=== PATIENT | male | born 1965 | race Caucasian/White ===

== ENCOUNTER 2016-10-02 12:40 | Inpatient (IN) | payer OTHER ==
--- NOTE | ~2016-10-02 | EKG ---
PATIENT: ABDIRIZAK SUMMERS UNIT #: [id number] Ventricular Rate: 112 BPM Atrial Rate: 104 BPM QRS Duration: 150 ms Q-T Interval: 398 ms QTC Calculation(Bezet): 543 ms Calculated R Cary: 86 degrees Calculated T Cary: 0 degrees Diagnosis Line: Atrial fibrillation with rapid ventricular Diagnosis Line: response Diagnosis Line: Right bundle branch block Diagnosis Line: Abnormal ECG Diagnosis Line: When compared with ECG of 31-JUL-2016 22:39, Diagnosis Line: No significant change was found Diagnosis Line: Confirmed by BETHANY JONES MD ([id number]) on 10/04/2016 Diagnosis Line: 7:29:31 PM INTERPRETING MD: ROBERT BEATTY
--- NOTE | ~2016-10-02 | CR72 ---
[facility] A Service of [facility] RADIOLOGY TEXT RESULTS PATIENT: ABDIRIZAK SUMMERS LOCATION: [address] : [birth year] UNIT #: [id number] AGE: [address]: Willa Cox MD SEX: M ORDER DR: [id number] [place], [place] [address] [id number] I MR#: [id number] Acc #: [id number] NAME: ABDIRIZAK SUMMERS : 1965 SEX: M STUDY DATE/TIME: 10/06/2016 7:15 UNIT: [facility] ROOM: [facility] STUDY DESCRIPTION: CR Chest Single View Portable Attending Physician: Willa Cox M.D. Ordering Physician: Rita German M.D. MEDICAL IMAGING REPORT This report is preliminary unless electronic signature is present EXAM AP portable chest 10/06/2016. HISTORY Endotracheal tube. TECHNIQUE AP portable chest x-ray. FINDINGS Endotracheal tube tip is high in the thoracic trachea near the thoracic inlet about 6 cm above the dakotah. Left IJ central line in good position. NG tube below the diaphragm. No significant change since yesterday. Infiltrate or atelectasis in the right lung base. Lungs otherwise clear. Stable cardiomegaly. IMPRESSION Endotracheal tube tip high in the thoracic trachea as detailed above. Dictated by... Robbie Nassar M.D. THIS IS AN ELECTRONICALLY VERIFIED REPORT Robbie Nassar M.D. at 10/06/2016 10:35 AM [place] TD: 10/06/2016 08:02 JOB #: [id number] MEDICAL IMAGING REPORT COPY
--- NOTE | ~2016-10-02 | CO ---
Unit #: [id number] #: [id number] Patient: ABDIRIZAK SUMMERS [id number] [address] [address] [id number] I MR#: [id number] NAME: ABDIRIZAK SUMMERS ROOM: [facility] Age: 51 Sex: M Admission Date: 10/02/2016 : 1965 Attending Physician: Willa Cox M.D. Primary Care Physician: No Primary Care Physician CONSULTATION REPORT CHIEF COMPLAINT C. diff colitis, sepsis, multiorgan failure, atrial fibrillation, on heparin, thrombocytopenia. HISTORY OF PRESENT ILLNESS This is a 51-year-old male who came to hospital with C. diff colitis. Patient had exploratory laparotomy. No hemicolectomy. Patient had lysis of adhesions. At present patient is septic. His blood pressure is low. He is on multiple pressors. He is taking multiple antibiotics. He is in renal failure. He has congestive heart failure. From a hematology point of view he has atrial fibrillation. He is taking heparin. His platelet count has dropped about 50%. CBC on October 08, 2016 showed WBC 18.6, hemoglobin 14.9, MCV 83 and platelets 221. Today CBC showed WBC 9.3, hemoglobin (1) , MCV 81 and platelets 114. There are no petechiae, no ecchymosis. He is not bleeding. He is tolerating heparin. I reviewed the peripheral smear and there are no schistocytes. Platelet morphology is normal. There is mild left shift. His bilirubin has increased to 4.2, LDH is pending. At present as mentioned above he is on multiple pressors. He is sedated and intubated. REVIEW OF SYSTEMS Unable to obtain. PAST MEDICAL HISTORY 1. Morbid obesity. 2. Diabetes. 3. Hypertension. 4. Obstructive sleep apnea. 5. Back pain. 6. Renal failure. 7. Congestive heart failure. 8. Atrial fibrillation. PAST SURGICAL HISTORY Tonsillectomy. Unit #: [id number] #: [id number] Patient: ABDIRIZAK SUMMERS SOCIAL HISTORY He is on disability. He quit smoking may years ago. FAMILY HISTORY Details not available. ALLERGIES Codeine. PHYSICAL EXAMINATION VITAL SIGNS: Afebrile, pulse 119, respiratory 18 while intubated, O2 sat is 96%, blood pressure 117/68. GENERAL: Patient is comfortable. ECOG is 0. The patient is pleasant. HEENT: Dry mucosa. Pupils equally reactive to light. Extraocular muscles intact. Sclerae anicteric. No obvious bleeding from nasal mucosa or oral mucosa. Scalp normal. Hearing normal. NECK: No JVD. No lymphadenopathy. LYMPHATIC/HEMATOLOGIC: There is no palpable adenopathy in the neck, axilla or inguinal area. CARDIOVASCULAR: S1, S2. RESPIRATORY: Bilateral wheezing. ABDOMEN/GASTROINTESTINAL: Abdomen is soft. EXTREMITIES: Edema +2. NEUROLOGICAL: Patient is alert, awake and oriented x3. Cranial nerves II-XII are intact. Sensory grossly intact. Motor is 4/5 in all four extremities. Gait is normal. Station is normal. Language is normal. Memory is normal. DTRs +2 in all four extremities. MUSCULOSKELETAL: No joint swelling. No bony tenderness. No muscle tenderness. SKIN: No petechiae, no rash, no ecchymosis. PSYCHIATRIC: No anxiety. No delusions or hallucinations. There is no agitation. Eye contact is normal. Affect is appropriate. There is no flight of ideas. DIAGNOSTIC STUDIES LABORATORY: Labs as mentioned above. IMAGING: CT of the abdomen and pelvis on 10/02/2016 showed thickening of the left colon. There is a possible segmental infection or inflammatory proctocolitis. CT of the chest on 08/01/2016 no mass. There is a 9 mm ground-glass nodule in the superior left lower lobe. ASSESSMENT AND PLAN This is a 51-year-old male who has the following active issues: 1. Clostridium difficile colitis. He is septic. He is on multiple pressors. 2. Cardiovascular: He has atrial fibrillation. He is on heparin. 3. Thrombocytopenia: His platelet count has dropped by 50%. The etiology of thrombocytopenia includes possible HIT or sepsis. A HIT panel has been ordered. As a precaution I will discontinue heparin. I will start argatroban. Will maintain PTT from 40 to 60. 4. Anemia: I will check iron studies. 5. Cardiovascular: His ejection fraction is less than 20%. 6. Renal: He is on dialysis. He is in acute renal failure. PROGNOSIS Unit #: [id number] #: [id number] Patient: ABDIRIZAK SUMMERS His prognosis is poor. Dictated by... Bunny Grider TD: 10/10/2016 15:40 JOB #: [id number] CONSULTATION REPORT X Josie Michaud MD X CONSULTATION REPORT
--- NOTE | ~2016-10-02 | OR ---
Unit #: [id number] #: [id number] Patient: ABDIRIZAK SUMMERS [id number] [address] [id number] I MR#: [id number] NAME: ABDIRIZAK SUMMERS ROOM: [facility] Date of Procedure: 10/09/2016 Admission Date: 10/02/2016 Surgeon: Herve Johnson M.D. : 1965 Attending Physician: Willa Cox M.D. Primary Care Physician: Mirlande Primary Care Physician PROCEDURE OPERATIVE NOTE PREOPERATIVE DIAGNOSIS Pneumonia. POSTOPERATIVE DIAGNOSIS Pneumonia. PROCEDURES PERFORMED 1. Diagnostic bronchoscopy. 2. Bronchoalveolar lavage. INDICATION FOR PROCEDURE Pneumonia. PROCEDURE After taking consent from the patient's family, after explaining the risks and benefits, the patient was placed in the appropriate position. Bronchoscope was introduced through the endotracheal tube, which was sitting well above the dakotah. We examined the right upper, right middle, right lower lobe, left upper lobe, lingual and left lower lobe. No endobronchial lesion was found. There were thick mucoid secretions in both lungs which were therapeutically suctioned. Then we did a bronchoalveolar lavage in the right lower lobe area with 60 ml of saline in and 20 ml retrieved. The patient tolerated the procedure very well with no complications. Dictated by... Bunny Ramirez TD: 10/09/2016 12:25 JOB #: [id number] Unit #: [id number] #: [id number] Patient: ABDIRIZAK SUMMERS PROCEDURE OPERATIVE NOTE X Herve Johnson MD PROCEDURE OPERATIVE NOTE
--- NOTE | ~2016-10-02 | CR72 ---
[facility] A Service of [facility] RADIOLOGY TEXT RESULTS PATIENT: ABDIRIZAK SUMMERS LOCATION: [place] [address] : [birth year] UNIT #: [id number] AGE: [address]: Willa Cox MD SEX: M ORDER DR: [id number] [place], [place] [address] [id number] I MR#: [id number] Acc #: [id number] NAME: ABDIRIZAK SUMMERS : 1965 SEX: M STUDY DATE/TIME: 10/10/2016 4:42 UNIT: [facility] ROOM: [facility] STUDY DESCRIPTION: CR Chest Single View Portable Attending Physician: Willa Cox M.D. Ordering Physician: Herve Johnson M.D. Primary Care Physician: No Primary Care Physician MEDICAL IMAGING REPORT This report is preliminary unless electronic signature is present EXAM AP portable chest 10/10/2016 at 04:42. HISTORY Respiratory failure. Atrial fibrillation. Hypotension. Intubation. Symptoms began 10/02/2016. COMPARISON AP portable chest 10/09/2016. FINDINGS The patient is rotated toward the right. Allowing for this, the degree of cardiac enlargement is probably stable. Right greater than left basilar airspace disease and probable small right pleural effusion are unchanged. Right IJ central line, ET tube, left subclavian approach central line, NG tube appear stable. No visible pneumothorax. IMPRESSION 1. Right greater left basilar airspace disease with probable small right pleural effusion, cardiomegaly, without significant change. 2. Supporting lines and tubes appear stable. No visible pneumothorax. Dictated by... Melinda Puente M.D. THIS IS AN ELECTRONICALLY VERIFIED REPORT Melinda Puente M.D. at 10/10/2016 9:58 PM LLH/gz TD: 10/10/2016 13:20 JOB #: [id number] MEDICAL IMAGING REPORT [facility] A Service of [facility] RADIOLOGY TEXT RESULTS PATIENT: ABDIRIZAK SUMMERS LOCATION: [facility] : [birth year] UNIT #: [id number] AGE: [address]: Willa Cox MD SEX: M ORDER DR: COPY
--- NOTE | ~2016-10-02 | CO ---
Unit #: [id number] #: [id number] Patient: ABDIRIZAK SUMMERS [id number] [address] [address] [id number] I MR#: [id number] NAME: ABDIRIZAK SUMMERS ROOM: [id number] Age: 51 Sex: M Admission Date: 10/02/2016 : 1965 Attending Physician: Willa Cox M.D. Primary Care Physician: Mirlande Primary Care Physician Consultation Date: 10/02/2016 CONSULTATION REPORT REASON FOR CONSULT ICU management. HISTORY OF PRESENT ILLNESS This is a 51-year-old male who is well known to our service from previous admissions with past medical history significant for obstructive sleep apnea - on CPAP, A fib, hypertension, hyperlipidemia, diabetes. He presented to the emergency room with diarrhea for 3 weeks and shaking. The patient, today, started having some abdominal cramps. By the time he arrived in the ER, his blood pressure was in the mid 60s, and he was found to be hypothermic. A STAT CT abdomen showed colitis. The patient admitted to having some shortness of breath, but he denied any cough, fever or chills. REVIEW OF SYSTEMS Twelve-point review of systems was obtained and was negative except for diarrhea, abdominal cramps and some shortness of breath. PAST MEDICAL HISTORY 1. A fib. 2. Hypertension. 3. Hyperlipidemia. 4. Diabetes. 5. Obstructive sleep apnea. 6. Chronic kidney disease. 7. Morbid obesity. 8. Chronic back pain. PAST SURGICAL HISTORY 1. Tonsillectomy. 2. Finger surgery. 3. Eye surgery. 4. Umbilical hernia repair. SOCIAL HISTORY The patient is on disability. He uses a cane and walker. He quit smoking many years ago. He drinks beer occasionally but not a daily drinker. No history of drug abuse. FAMILY HISTORY Cancer of unknown type and brain aneurysm. ALLERGIES Unit #: [id number] #: [id number] Patient: ABDIRIZAK SUMMERS Codeine. HOME MEDICATIONS 1. Bystolic. 2. Eliquis. 3. Neurontin. 4. Protonix. 5. Levemir. 6. Bumex. 7. Iron. 8. Tribenzor. PHYSICAL EXAMINATION GENERAL: The patient is ill appearing. VITAL SIGNS: Blood pressure 72/53 with a MAP of 34. HEENT: Atraumatic, normocephalic. PERRLA, EOMI. NECK: Supple. No JVD. No lymphadenopathy. CHEST: Decreased breath sounds bilaterally with no crackles or rhonchi. HEART: S1, S2. No murmur, gallops or rubs. ABDOMEN: Soft, tender to deep palpation. Bowel sounds positive. EXTREMITIES: Bilateral lower extremity venous stasis changes with wound on the right lower extremity. SKIN: No rashes. SENIOR BUDGET ANALYST: Awake, alert, oriented x3. No focal motor/sensory deficits. DIAGNOSTIC STUDIES LABORATORY: Creatinine 4.5, sodium 128, potassium 3.2. IMAGING: CT abdomen consistent with colitis. ASSESSMENT 1. Septic shock. 2. Acute on chronic kidney disease. 3. Hyponatremia. 4. Hypokalemia. 5. Hypomagnesemia. 6. Obstructive sleep apnea. 7. Morbid obesity. 8. Diabetes. PLAN 1. The patient is critical. Emergent central line will be placed for pressors and hydration. 2. Will follow lactic acid and urine output very closely. 3. IV hydration and pressors as needed. 4. Rule out C. diff. 5. Antibiotics empirically. 6. Blood sugar control. 7. Continue Eliquis. NOTE: Critical care time spent on this patient was 42 minutes. Dictated by... Alejo German M.D. EA/ronnie Unit #: [id number] #: [id number] Patient: ABDIRIZAK SUMMERS TD: 10/03/2016 09:22 JOB #: [id number] CONSULTATION REPORT X ALEJO CONTEH MD CONSULTATION REPORT
--- NOTE | ~2016-10-02 | FU ---
[facility] Nutrition Therapy DATE: 10/15/16 Patient: ABDIRIZAK SUMMERS Physician: TERESA Address: [address] [place] [address] Room/Bed: [address], Zip: [place] [address] Admit Date: 10/02/16 Date of : [birth year] Height: 5 9 Weight: 379 172 NUTRITION MONITORING/FOLLOW-UP: Reason: PT SEEN FOR FOLLOW-UP/ENTERAL NUTRITION SUPPORT DX: DIARRHEA/ABD CRAMPS Anthropometrics: 5'8", WT: 390# (177 KG), BMI: 59.3 -ADMIT WEIGHT: 375# (170 KG)- WEIGHTS HAVE INCREASED 2' FLUID RETENTION? Labs: GLU: 185, BUN: 46, CREAT: 1.7, CA+: 7.9, ALB: 2.8, AST: 72, NA+:134, GFR: 45.2 Meds: NACL, REGLAN, NOVOLOG, FENTANYL, PEPCID, ZOFRAN, KCL I&O's: 54000/9621, 1 BM NOTED Skin: ISSUES NOTED EDEMA: FAYE HANDS/ARMS 1+ EDEMA; BILATERAL FEET 3+ EDEMA; BILATERAL LEGS 1+ EDEMA Estimated Nutrition Needs: [id number] KCAL 105-140 G PRO Assessment: CHART REVIEWED AND EVENTS NOTED. PT SEEN FOR ENTERAL NUTRITION SUPPORT FOLLOW-UP. PT CONTINUES TO BE INTUBATED AND SEDATED AT TIME OF VISIT RECEIVING ALTERNATIVE NUTRITION SUPPORT OF VITAL HIGH PROTEIN @ 65 ML/HR. PER RN AND CHART, PT TOLERATING EN, NO ISSUES NOTED. NO FAMILY IN ROOM AT THIS TIME. RD TO CONTINUE TO FOLLOW. OF NOTE, PT RECEIVING CRRT. Dx: INADEQUATE ORAL INTAKE R/T CURRENT CLINICAL CONDITION AEB PT INTUBATED AND SEDATED, RECEIVING ALTERNATIVE NUTRITION SUPPORT. IN PROGRESS Intervention: 1. ENTERAL NUTRITION SUPPORT OF VITAL HIGH PROTEIN Monitoring, Evaluation and Goals: GOALS MET 1. ENTERAL NUTRITION; PROVIDE ~80-100% ESTIMATED NUTRIENT NEEDS 2. LABS; WNL 3. GI; PROMOTE REGULAR GI FUNCTION MONITOR: -WEIGHTS -TF RATE/RESIDUALS -LABS Recommendations: [facility] Nutrition Therapy DATE: 10/15/16 Patient: ABDIRIZAK SUMMERS Physician: TERESA Address: [address] [place] [address] Room/Bed: [address] State, Zip: [place] [address] Admit Date: 10/02/16 Date of : [birth year] Height: 5 9 Weight: 379 172 1. ADD SUGAR-FREE PROSTAT ONCE DAILY FOR ADDITIONAL PROTEIN AND KCAL 2. CONTINUE CURRENT ENTERAL NUTRITION SUPPORT OF VITAL HIGH PROTEIN @ 65 ML/HR + SUGAR-FREE PROSTAT DAILY -PROVIDES 1660 KCAL, 152 G PRO, 1310 ML FREE H20 CONTINUE FREE H20 FLUSHES PER MD RD WILL F/U PER PROTOCOL PT IS SEVERELY COMPROMISED Respectfully, ROSALVA GONG MS, RD, LD Food and Nutritional Services [facility] cc: client file
--- NOTE | ~2016-10-02 | CO ---
Unit #: [id number] #: [id number] Patient: ABDIRIZAK SUMMERS [id number] [address] [place], [place] [address] [id number] I MR#: [id number] NAME: ABDIRIZAK SUMMERS ROOM: [facility] Age: 51 Sex: M Admission Date: 10/02/2016 : 1965 Attending Physician: Willa Cox M.D. CONSULTATION REPORT JOB NOTE: CC: DR. RENTERIA. REASON FOR CONSULTATION Chest pain. HISTORY OF PRESENT ILLNESS This is a 51-year-old white male, who was discharged from this facility in August, where he was admitted for pneumonia, respiratory failure, and Clostridium difficile toxin. Since his discharge, the patient continued to have diarrhea. He went to his primary care physician's office and was given another round of antibiotics. He continued to have abdominal pain, therefore, he presented to the emergency room for evaluation. He was noted to have colitis on CAT scan of the abdomen. He was hypotensive, where his blood pressure was 68/36 mmHg requiring vasoactive support with Levophed. He was admitted to the intensive care unit. Today, the patient complained of substernal chest pain, which he describes as a sharp pain that is nonradiating to his neck, arm, or jaw. He has also had persistent abdominal discomfort. He was short of breath and felt "hot." He denies palpitations or dizziness. No syncope or near syncope. There was elevation of troponin that was 0.15. His admitting EKG of the patient have atrial fibrillation in a rapid ventricular rate of 112 beats per minute. Repeat EKG today shows a T-wave inversions with ST depression in the anterolateral leads. He has been seen by our group in 2013, where he was originally diagnosed with atrial fibrillation/flutter. He has been on anticoagulation with Eliquis. He has risk factors for ischemic heart disease includes hypertension, hyperlipidemia, and obesity. He has had no prior cardiac testing. In review of rhythm strips, the patient had several runs of nonsustained ventricular tachycardia up to 6 beats. PAST MEDICAL HISTORY 1. 2D echocardiogram on 04/10/2014 showed an ejection fraction equal to 50% to 55%. There is pseudonormalization. Trace mitral regurgitation and trace tricuspid regurgitation. Right ventricular enlargement. 2. Hypertension. 3. Hyperlipidemia. 4. Permanent atrial fibrillation/flutter, on Eliquis. 5. Chronic kidney disease. 6. Obstructive sleep apnea wears CPAP. 7. Obesity. 8. Clostridium difficile toxin. 9. Rheumatoid arthritis. 10. Lifelong nonsmoker. Unit #: [id number] #: [id number] Patient: ABDIRIZAK SUMMERS PAST SURGICAL HISTORY 1. Hernia repair x2. 2. Left finger surgery. 3. Right leg vein stripping. 4. Tonsillectomy. SOCIAL HISTORY The patient is single and disabled. He has never smoked. Drinks alcohol on occasion. FAMILY HISTORY Negative for coronary artery disease. ALLERGIES Codeine. HOME MEDICATIONS Magnesium oxide 400 mg b.i.d., Bumex 2 mg daily, Bystolic 20 mg daily, Tribenzor 40/5/12.5 mg daily, ferrous sulfate 325 mg t.i.d., Neurontin 300 mg q.h.s., Eliquis 5 mg b.i.d., Protonix 40 mg b.i.d., and Levemir 20 units subcu daily. REVIEW OF SYSTEMS A 10-point review of system is negative except details stated in HPI. PHYSICAL EXAMINATION VITAL SIGNS: Blood pressure 90/72, heart rate 98, temperature 97.3. BMI 55. GENERAL: This is an obese 51-year-old mildly anxious white male, who is in no acute distress. NEUROLOGIC: He is awake, alert, and oriented without focal weaknesses. NECK: Trachea is midline. No thyromegaly or lymphadenopathy. No jugular venous distention. HEART: S1, S2. Heart sounds are normal. No murmurs. No rubs or clicks. Irregularly irregular rhythm. LUNGS: Clear to auscultation without rales, rhonchi, or wheezing. ABDOMEN: Slightly firm with tenderness. 4+ bowel sounds. EXTREMITIES: With trace lower extremity edema. DIAGNOSTIC STUDIES LABORATORY RESULTS: Glucose 108, BUN 35, creatinine 2.2, sodium 127, potassium 3.7, magnesium 1.8. CK total is 8, troponin 0.15. BNP 482. White count 13.1, hemoglobin 13.3, hematocrit 41.5, and platelet count 171. IMAGING STUDIES: Chest x-ray shows no active disease. CARDIOVASCULAR STUDIES: Presenting EKG; atrial fibrillation with rapid ventricular response with a rate of 112 beats per minute. Repeat EKG; atrial fib with controlled ventricular rate of 82 beats per minute, pulmonary disease pattern, low-voltage QRS. There is T-wave inversion from V3 to V6, but ST depression. IMPRESSION 1. Chest pain, questionable septic shock. 2. Clostridium difficile colitis. 3. Acute kidney injury on chronic kidney disease. 4. New-onset angina pectoris. Unit #: [id number] #: [id number] Patient: ABDIRIZAK SUMMERS 5. Probable anterior wall injury pattern. 6. Morbid obesity with BMI of 55. 7. Nonsustained ventricular tachycardia. 8. Preserved left ventricular systolic function with an ejection fraction of 50% to 55%. 9. Permanent atrial fibrillation and controlled ventricular rate. 10. Chronic right bundle-branch block. PLAN 1. Cardiology was consulted for chest pain. The patient's chest pain is most likely ischemic in origin. We will start the patient on anticoagulation with Lovenox and aspirin. Withhold Eliquis for now. 2. We will ask pharmacy to dose anticoagulation. 3. Start on nitrates. 4. For ventricular arrhythmias, we will start the patient on IV amiodarone. 5. Repeat chest x-ray in a.m. 6. Repeat cardiac enzymes, troponin, and EKG to rule out acute myocardial infarction. 7. Fasting lipid profile will be obtained. 8. We will follow the patient with you. Thank you for allowing us to assist in this patient's care. Dictated by... Yan Mccain A.P.R.N. for Bunny Tran/cristian TD: 10/04/2016 21:36 JOB #: [id number] CONSULTATION REPORT X Yan Mccain APRN X CONSULTATION REPORT
--- NOTE | ~2016-10-02 | CR72 ---
[facility] A Service of [facility] & [facility] RADIOLOGY TEXT RESULTS PATIENT: ABDIRIZAK SUMMERS LOCATION: [address] : [birth year] UNIT #: [id number] AGE: [address]: Willa Cox MD SEX: M ORDER DR: [id number] [facility] [address] [facility]. [place], [place] [address] [id number] I MR#: [id number] Acc #: [id number] NAME: ABDIRIZAK SUMMERS : 1965 SEX: M STUDY DATE/TIME: 10/08/2016 UNIT: [facility] ROOM: [facility] STUDY DESCRIPTION: CR Chest Single View Portable Attending Physician: Willa Cox M.D. Ordering Physician: Herve Johnson M.D. Primary Care Physician: No Primary Care Physician MEDICAL IMAGING REPORT This report is preliminary unless electronic signature is present EXAM Portable chest, 10/08/2016 at 04:46. HISTORY Hypotension, shortness of air, intubation, atrial fibrillation. FINDINGS AP portable chest compared with 10/07/2016. Tubes and lines are unchanged and well-positioned. The cardiac and mediastinal contours are unchanged. Small effusions are stable. There are persistent bibasilar infiltrates, also not appreciably changed. No pneumothorax. Dictated by... Shaun Lea Jr., M.D. THIS IS AN ELECTRONICALLY VERIFIED REPORT Shaun Lea Jr., M.D. at 10/08/2016 12:40 PM JORGE/saray TD: 10/08/2016 10:21 JOB #: [id number] MEDICAL IMAGING REPORT COPY
--- NOTE | ~2016-10-02 | A ---
[facility] Nutrition Therapy DATE: 10/04/16 Patient: ABDIRIZAK LAURENHASEEBJoseph Physician: TERESA Address: [address] [place] [address] Room/Bed: [address], Zip: [place] [address] Admit Date: 10/02/16 Date of : 63 Height: 5 9 Weight: 375 170.1 NUTRITIONAL ASSESSMENT: REASON: ONE NUTRITION RISK PT RE: PRESSURE ULCER/NON-HEALING WOUND + HIGH BMI DOCUMENTATION PT IS 51 Y.O. MALE ADMITTED FOR DIARRHEA, ABD CRAMPING , ARF PMH: CKD, T2DM, LEE, HTN, HLD, AFIB, RESP FAILURE, HYPOTHYROIDISM, HX OF HERNIA REPAIR Anthropometrics: 5'8", WT: 375# (170 KG), BMI: 57.0, 244%IBW Labs: BUN: 35, CREAT: 2.2, CA+:7.4, ALB: 1.5, NA+:127, LIPASE: <10, GFR: 33.6 Meds: PEPCID, D5%, NOVOLOG, ZOFRAN, KCL, MAG SULFATE, NACL I/O & Bowel function: 5738/1164, 4 BMs Skin Integrity: RLE WOUND NOTED EDEMA: BLE GENERALIZED EDEMA Estimated Nutrition Needs: N/A Assessment: CHART REVIEWED AND EVENTS NOTED. PT SEEN FOR NON-HEALING WOUND. PT REPORTED DECREASED PO INTAKE AND APPETITE 2' CHRONIC DIARRHEA AND ABD CRAMPING. PT ON BEDPAN-NOT APPROPRIATE FOR LONG DIET INTERVIEW. THIS RD ENCOURAGED ADEQUATE KCAL AND PROTEIN INTAKE TO PROMOTE WOUND HEALING, PT AGREED TO GLUCERNA SHAKES BID. NO FAMILY IN ROOM AT THIS TIME. RD TO FOLLOW. SEE RECOMMENDATIONS BELOW. Dx: OBESITY R/T LIFESTYLE AEB BMI OF 57.0. -DECREASED NUTRIENT INTAKE R/T CURRENT CONDITION, CHRONIC DIARRHEA, ABD CRAMPING AEB PT REPORT ABOVE. Intervention: 1. FULL LIQUID DIET 2. GLUCERNA SHAKES BID Monitoring, Evaluation and Goals: 1. PO INTAKE; PROVIDE AND CONSUME ADEQUATE NUTRITION W/NO C/O N/V/D (PO>50%) 2. WEIGHTS; PROMOTE GRADUAL WEIGHT LOSS TOWARDS HEALTHY BMI (19.0-25.0) OR +/-10%IBW 3. LABS; WNL 4. SKIN; PROMOTE WOUND HEALING MONITOR: -PO INTAKE/APPETITE [facility] Nutrition Therapy DATE: 10/04/16 Patient: ABDIRIZAK SUMMERS Physician: TERESA Address: [address] [facility] Room/Bed: [address], Zip: [place] [address] Admit Date: 10/02/16 Date of : 63 Height: 5 9 Weight: 375 170.1 -SUPPLEMENT INTAKE -DIET ADVANCEMENT -WEIGHTS -LABS Recommendations: 1. RECOMMEND TO OBTAIN UPDATED A1c TO FURTHER ASSESS DM MANAGEMENT 2. ORDER ELLI GLUCERNA SHAKES BID W/MEALS 3. ONCE MEDICALLY FEASIBLE, ADVANCE DIET TOLERATED TO CC+HH +2200 KCAL DIET RESTRICTION 4. CONSIDER ADDING MVI W/MINERAL DAILY TO PT'S CURRENT MEDICATION REGIMEN TO PROMOTE WOUND HEALING 5. ENCOURAGE ADEQUATE KCAL AND PROTEIN INTAKE 2' PT REPORT ABOVE RD WILL F/U PER PROTOCOL PT IS MODERATELY COMPROMISED Respectfully, ROSALVA GONG MS, RD, LD [facility] cc: client file
--- NOTE | ~2016-10-02 | CT57 ---
[facility] A Service of [facility] RADIOLOGY TEXT RESULTS PATIENT: ABDIRIZAK SUMMERS LOCATION: [address] : [birth year] UNIT #: [id number] AGE: [address]: Willa Cox MD SEX: M ORDER DR: [id number] [place], [place] [address] [id number] I MR#: [id number] Acc #: [id number] NAME: ABDIRIZAK SUMMERS : 1965 SEX: M STUDY DATE/TIME: 10/17/2016 10:40 UNIT: CIC2 ROOM: [facility] STUDY DESCRIPTION: CT Chest Wo Cont Attending Physician: Willa Cox M.D. Ordering Physician: Osei Arias M.D. Primary Care Physician: No Primary Care Physician MEDICAL IMAGING REPORT This report is preliminary unless electronic signature is present EXAM Chest CT without contrast DATE OF EXAMINATION 10/17/2016 PROCEDURE Axial unenhanced chest CT with multiplanar reformats. This CT exam was performed with one or more of the following radiation dose reduction techniques: automatic exposure control, adjustment of mA and/or kV according to patient size, and iterative reconstruction. COMPARISON STUDIES Prior CT dated 08/01/2016 HISTORY Sepsis with respiratory failure. FINDINGS There are moderate to large bilateral effusions and dependent compressive atelectasis but no evidence of infiltrate or other acute abnormality in the non compressed portions of the lungs. Images of the abdomen reveal ascites and distention of the stomach though there is an NG tube in place. There is no acute bony abnormality. IMPRESSION 1. Moderate to large bilateral effusions with posterior basilar dependent atelectasis and/or less likely infiltrate. 2. No pneumothorax and there is no infiltrate in any nondependent lung. [facility] A Service [facility] RADIOLOGY TEXT RESULTS PATIENT: ABDIRIZAK SUMMERS LOCATION: [address] : [birth year] UNIT #: [id number] AGE: [address]: Willa Cox MD SEX: M ORDER DR: Dictated by... Marcello Garcia M.D. THIS IS AN ELECTRONICALLY VERIFIED REPORT Marcello Garcia M.D. at 10/19/2016 1:49 PM ASUNCION/selam TD: 10/18/2016 09:42 JOB #: [id number] MEDICAL IMAGING REPORT Page 1 of 1 COPY
--- NOTE | ~2016-10-02 | CR72 ---
[facility] A Service of [facility] RADIOLOGY TEXT RESULTS PATIENT: ABDIRIZAK SUMMERS LOCATION: [address] : [birth year] UNIT #: [id number] AGE: [address]: Willa Cox MD SEX: M ORDER DR: [id number] [facility] [address] [facility]. [place], [place] [address] [id number] I MR#: [id number] Acc #: [id number] NAME: ABDIRIZAK SUMMERS : 1965 SEX: M STUDY DATE/TIME: 10/11/2016 4:53 UNIT: [facility] ROOM: [facility] STUDY DESCRIPTION: CR Chest Single View Portable Attending Physician: Willa Cox M.D. Ordering Physician: Herve Johnson M.D. Primary Care Physician: Primary Care Physician No MEDICAL IMAGING REPORT This report is preliminary unless electronic signature is present EXAM AP portable chest 10/11/2016 04:53 HISTORY Sepsis, respiratory failure, hypotension. C-difficile colitis. Symptoms began 10/02/2016. Additional history of atrial fibrillation, diabetes, obesity and kidney disease. Hypertension. COPD. COMPARISON AP portable chest 10/10/2016 FINDINGS Low-volume inspiration. Heart size is stable and deviated toward the right, unchanged from prior. Bibasilar airspace disease with small layering pleural effusions without significant change. Right IJ central line, ET tube and left IJ approach central line thought to be stable. No visible pneumothorax. IMPRESSION 1. Right greater than left airspace disease and layering bilateral pleural effusions, without significant change. 2. Supporting lines and tubes are stable. 3. Stable cardiac enlargement. Dictated by... Melinda Puente M.D. THIS IS AN ELECTRONICALLY VERIFIED REPORT Melinda Puente M.D. at 10/11/2016 10:02 PM DILSHAD/ish TD: 10/11/2016 08:38 JOB #: [id number] [facility] A Service of [facility] RADIOLOGY TEXT RESULTS PATIENT: ABDIRIZAK SUMMERS LOCATION: [id number] : [birth year] UNIT #: [id number] AGE: [address]: Willa Cox MD SEX: M ORDER DR: MEDICAL IMAGING REPORT COPY
--- NOTE | ~2016-10-02 | CR72 ---
[facility] A Service of [facility] RADIOLOGY TEXT RESULTS PATIENT: ABDIRIZAK SUMMERS LOCATION: [address] : [birth year] UNIT #: [id number] AGE: [address]: Willa Cox MD SEX: M ORDER DR: [id number] [facility]. [place], [place] [address] [id number] I MR#: [id number] Acc #: [id number] NAME: ABDIRIZAK SUMMERS : 1965 SEX: M STUDY DATE/TIME: 10/13/2016 3:22 UNIT: [facility] ROOM: [facility] STUDY DESCRIPTION: CR Chest Single View Portable Attending Physician: Willa Cox M.D. Ordering Physician: Herve Johnson M.D. Primary Care Physician: No Primary Care Physician MEDICAL IMAGING REPORT This report is preliminary unless electronic signature is present EXAM AP portable chest date 10/13/2016 at 03:22 HISTORY 51-year-old male, sepsis, respiratory failure and hypotension. Symptoms began 10/02/2016. History of atrial fibrillation, diabetes, COPD, hypertension. COMPARISON AP portable chest 10/12/2016 FINDINGS Small bilateral pleural effusions with bibasilar atelectasis or infiltrates persist. Stable cardiomegaly. Right IJ central line, ET tube, NG tube appear unchanged in position. Left subclavian central line unchanged. No visible pneumothorax. IMPRESSION 1. No significant change in the bibasilar atelectasis or infiltrate and small layering bilateral pleural effusions in comparison to 10/12/2016. The supporting lines and tubes appear stable. Dictated by... Melinda Puente M.D. THIS IS AN ELECTRONICALLY VERIFIED REPORT Melinda Puente M.D. at 10/13/2016 10:25 PM LLJocelyne/jd TD: 10/13/2016 12:23 JOB #: [id number] MEDICAL IMAGING REPORT [facility] A Service of [facility] RADIOLOGY TEXT RESULTS PATIENT: ABDIRIZAK SUMMERS LOCATION: [facility] [id number] : [birth year] UNIT #: [id number] AGE: [address]: Willa Cox MD SEX: M ORDER DR: COPY
--- NOTE | ~2016-10-02 | CR72 ---
[facility] A Service of [facility] RADIOLOGY TEXT RESULTS PATIENT: ABDIRIZAK SUMMERS LOCATION: [address] : 63 UNIT #: [id number] AGE: [address]: Willa Cox MD SEX: M ORDER DR: [id number] [facility] [address] [facility]. [place], [place] [address] [id number] I MR#: [id number] Acc #: [id number] NAME: ABDIRIZAK SUMMERS : 1965 SEX: M STUDY DATE/TIME: 10/15/2016 5:17 UNIT: [facility] ROOM: [facility] STUDY DESCRIPTION: CR Chest Single View Portable Attending Physician: Willa Cox M.D. Ordering Physician: Herve Johnson M.D. Primary Care Physician: No Primary Care Physician MEDICAL IMAGING REPORT This report is preliminary unless electronic signature is present EXAM Portable chest, 10/15/2016 at 05:17. HISTORY 51-year-old male with respiratory failure, sepsis. Symptoms began on 10/13/2016. Additional history of atrial fibrillation, diabetes. COMPARISON STUDIES AP portable chest, 10/14/2016. FINDINGS Persistent bibasilar consolidation with small layering bilateral pleural effusions, without significant change. Stable cardiomegaly. Right IJ central line, left IJ central line, tracheostomy appliance, and Dobbhoff tube appear unchanged. IMPRESSION 1. No significant change in the bibasilar consolidations and layering bilateral pleural effusions since 10/14/2016. 2. Supporting lines and tubes appear unchanged. No visible pneumothorax. Dictated by... Melinda Puente M.D. THIS IS AN ELECTRONICALLY VERIFIED REPORT Melinda Puente M.D. at 10/19/2016 8:37 AM DILSHAD/saray TD: 10/15/2016 10:59 JOB #: [id number] [facility] A Service of [facility] RADIOLOGY TEXT RESULTS PATIENT: ABDIRIZAK SUMMERS LOCATION: [address] : [birth year] UNIT #: [id number] AGE: [address]: Willa Cox MD SEX: M ORDER DR: MEDICAL IMAGING REPORT Page 1 of 1 COPY
--- NOTE | ~2016-10-02 | EKG ---
PATIENT: ABDIRIZAK SUMMERS UNIT #: [id number] Ventricular Rate: 107 BPM Atrial Rate: 77 BPM QRS Duration: 138 ms Q-T Interval: 354 ms QTC Calculation(Bezet): 472 ms Calculated R Craig: -153 degrees Calculated T Craig: 13 degrees Diagnosis Line: Atrial fibrillation with rapid ventricular Diagnosis Line: response Diagnosis Line: Right bundle branch block Diagnosis Line: Abnormal ECG Diagnosis Line: No previous ECGs available Diagnosis Line: Confirmed by BETHANY JONES MD ([id number]) on 10/06/2016 Diagnosis Line: 7:15:49 AM INTERPRETING MD: ROBERT BEATTY
--- NOTE | ~2016-10-02 | EKG ---
PATIENT: ABDIRIZAK SUMMERS UNIT #: [id number] Ventricular Rate: 82 BPM Atrial Rate: 82 BPM P-R Interval: 158 ms QRS Duration: 28 ms Q-T Interval: 282 ms QTC Calculation(Bezet): 329 ms P Genoa: 18 degrees Calculated R Genoa: 0 degrees Calculated T Genoa: -6 degrees Diagnosis Line: Atrial fibrillation Diagnosis Line: Indeterminate axis Diagnosis Line: Pulmonary disease pattern Diagnosis Line: ST depression, consider subendocardial injury Diagnosis Line: anteerolateral wall Diagnosis Line: Nonspecific ST abnormality Inferior leads Diagnosis Line: Abnormal ECG Diagnosis Line: When compared with ECG of 02-OCT-2016 13:08, Diagnosis Line: (unconfirmed) Diagnosis Line: ST depression, consider subendocardial injury is Diagnosis Line: new Diagnosis Line: Confirmed by BETHANY JONES MD ([id number]) on 10/04/2016 Diagnosis Line: 7:35:20 PM INTERPRETING MD: ROBERT BEATTY
--- NOTE | ~2016-10-02 | EKG ---
PATIENT: ABDIRIZAK SUMMERS UNIT #: [id number] Ventricular Rate: 119 BPM Atrial Rate: 107 BPM QRS Duration: 140 ms Q-T Interval: 402 ms QTC Calculation(Bezet): 565 ms Calculated R Adkins: -159 degrees Calculated T Adkins: 14 degrees Diagnosis Line: Atrial fibrillation with rapid ventricular Diagnosis Line: response Diagnosis Line: Right bundle branch block Diagnosis Line: Indeterminate axis Diagnosis Line: Possible Lateral infarct , age undetermined Diagnosis Line: Abnormal ECG Diagnosis Line: When compared with ECG of 05-OCT-2016 07:47, Diagnosis Line: (unconfirmed) Diagnosis Line: No significant change was found Diagnosis Line: Confirmed by BETHANY JONES MD ([id number]) on 10/06/2016 Diagnosis Line: 7:17:11 AM INTERPRETING MD: ROBERT BEATTY
--- NOTE | ~2016-10-02 | CR72 ---
[facility] A Service of [facility] RADIOLOGY TEXT RESULTS PATIENT: ABDIRIZAK SUMMERS LOCATION: [address] : 64 UNIT #: [id number] AGE: [address]: Willa Cox MD SEX: M ORDER DR: [id number] [facility] [address] [facility]. [place], [place] [address] [id number] I MR#: [id number] Acc #: [id number] NAME: ABDIRIZAK SUMMERS : 1965 SEX: M STUDY DATE/TIME: 10/07/2016 04:57 UNIT: [facility] ROOM: [facility] STUDY DESCRIPTION: CR Chest Single View Portable Attending Physician: Willa Cox M.D. Ordering Physician: Herve Johnson M.D. Primary Care Physician: Primary Care Physician No MEDICAL IMAGING REPORT This report is preliminary unless electronic signature is present EXAM Portable chest 10/07/2016 04:57 INDICATION Atrial fibrillation, shortness of air, intubated. FINDINGS AP portable chest is compared with 10/06/2016. Cardiomegaly is stable. Tubes and lines are unchanged. There are small bilateral pleural effusions and there are bibasilar infiltrates. Consolidation at the left base is slightly worsened while consolidation at the right base is unchanged. No pneumothorax. Dictated by... Shaun Lea Jr., M.D. THIS IS AN ELECTRONICALLY VERIFIED REPORT Shaun Lea Jr., M.D. at 10/07/2016 10:03 PM JORGE/diana TD: 10/07/2016 08:37 JOB #: [id number] MEDICAL IMAGING REPORT COPY
--- NOTE | ~2016-10-02 | CR72 ---
[facility] A Service of [facility] RADIOLOGY TEXT RESULTS PATIENT: ABDIRIZAK SUMMERS LOCATION: [address] : [birth year] UNIT #: [id number] AGE: [address]: Willa Cox MD SEX: M ORDER DR: [id number] [facility] [address] [place], [place] [address] [id number] I MR#: [id number] Acc #: [id number] NAME: ABDIRIZAK SUMMERS : 1965 SEX: M STUDY DATE/TIME: 10/05/2016 15:05 UNIT: [facility] ROOM: [facility] STUDY DESCRIPTION: CR Chest Single View Portable Attending Physician: Willa Cox M.D. Ordering Physician: Enzo Blanco M.D. Primary Care Physician: Primary Care Physician No MEDICAL IMAGING REPORT This report is preliminary unless electronic signature is present EXAM AP portable chest DATE 10/05/2016 at 15:05 HISTORY Status post intubation. Shortness of breath today. COMPARISON AP portable chest 10/05/2016 at 06:06. CT abdomen and pelvis 10/02/2016. AP portable chest 08/07/2016. FINDINGS Persistent moderate cardiac enlargement. Mediastinum shifted toward the right, suggesting a component of right basilar atelectasis. Mild medial left basilar infiltrate unchanged. Probable small right pleural effusion. Left neck-approach central line extends to the upper SVC. ET tube in satisfactory position mid-thoracic trachea. IMPRESSION 1. Suspected dense right basilar atelectasis. Pneumonia not excluded. Ill-defined infiltrate medial left lung base unchanged. 2. ET tube in satisfactory position with the tip approximately 5.4 cm above the dakotah. NG tube extends below the diaphragm with the tip not included in the field of view. 3. Stable cardiomegaly. Dictated by.Yisel Puente M.D. THIS IS AN ELECTRONICALLY VERIFIED REPORT [facility] A Service of [facility] RADIOLOGY TEXT RESULTS PATIENT: ABDIRIZAK SUMMERS LOCATION: CIC2 [facility]2-07 : 63 UNIT #: [id number] AGE: [address]: Willa Cox MD SEX: M ORDER DR: Melinda Puente M.D. at 10/06/2016 10:00 AM DILSHAD/harjit TD: 10/05/2016 23:24 JOB #: [id number] MEDICAL IMAGING REPORT COPY
--- NOTE | ~2016-10-02 | CO ---
Unit #: [id number] #: [id number] Patient: ABDIRIZAK SUMMERS [id number] [place], [place] [address] [id number] I MR#: [id number] NAME: ABDIRIZAK SUMMERS ROOM: [facility] Age: 51 Sex: M Admission Date: 10/02/2016 : 1965 Attending Physician: Willa Cox M.D. Consultation Date: 10/05/2016 CONSULTATION REPORT HISTORY AND EXAM The patient is a 51-year-old morbidly obese male, who is in the intensive care unit because of sepsis. He has a history of hypertension, COPD, atrial fibrillation, diabetes, hyperlipidemia, and recent streptococcal sepsis. He had been sent home, but at home he developed diarrhea and presented to the emergency room febrile and hypertensive. He was admitted by Dr. German in the ICU and has been resuscitated and started on antibiotics and diagnosed with Clostridium difficile enterocolitis. Despite aggressive measures by Dr. German, the patient continues to be febrile. He has abdominal distention with rebound tenderness and he is requiring greater pressor support and having declining urine output and urine function. Dr. German called because he was concerned that he is having a progressive sepsis that will require surgical removal of the infected source. PAST MEDICAL HISTORY Atrial fibrillation, hypertension, hyperlipidemia, diabetes, COPD, sleep apnea, chronic kidney disease, morbid obesity, chronic low back pain. He has had tonsillectomy, eye surgery, finger surgery, and an umbilical hernia repair. ALLERGIES He is allergic to codeine. MEDICATIONS Home medications include Bystolic, Eliquis, Neurontin, Protonix, Levemir, Bumex, iron, and Tribenzor. Here in the hospital, he is on multiple antibiotics and is on Artie-Synephrine and Levophed. He is requiring increasing doses to maintain his blood pressure. FAMILY HISTORY Cerebral aneurysm and cancer unknown primary. SOCIAL HISTORY The patient is on disability. He no longer smokes, but he continues to drink alcohol. Denies drug abuse. REVIEW OF SYSTEMS The patient is awake and alert. He complains of significant abdominal pain, but no others significant complaints at this time. PHYSICAL EXAMINATION VITAL SIGNS: Temperature has been over a 100 for over 24 hours. Pulse is 115 and he has been tachycardic since admission. Respirations 18 and Unit #: [id number] #: [id number] Patient: ABDIRIZAK SUMMERS, blood pressure 81/54 despite pressor support. HEENT: Unremarkable. CARDIAC: Irregular rhythm. LUNGS: Clear, but shallow inspirations. ABDOMEN: Distended. He has diffuse rebound tenderness. EXTREMITIES: 2+ edema. NEUROLOGIC: Grossly intact. DIAGNOSTIC STUDIES LABORATORY RESULTS: Blood gas; pH 7.37, pCO2 35, pO2 65 on 40% FiO2. Chemistries; BUN and creatinine 32 and 1.8, sodium 127, potassium 4.4, chloride 97, CO2 21, calcium 7.4, phosphorus 2.8, magnesium 2.2, albumin 1.7, total bilirubin 1.8. AST and ALT 35 and 15, alkaline phosphatase 177. Troponin 1.72. Lactic acid 2.3 up from 1.0. INR 1.7. White count 12,200, hemoglobin 15.2, platelets 224,000. Urinalysis negative for infection. IMAGING STUDIES: CT scan of the abdomen and pelvis shows findings consistent with colitis from at least the splenic flexure to the rectum. There is no free air at this time and no obstruction. No abscess was seen. Appendix was normal. Diffuse fatty infiltration of liver. Gallbladder was normal. Chest x-ray, no evidence of pulmonary edema or pneumonia. ASSESSMENT AND PLAN A 51-year-old gentleman with multiple comorbid conditions, has progressive sepsis despite an aggressive resuscitation and antibiotic therapy for Clostridium difficile colitis. The training analyst feels that he is not responding to treatment and has requested a surgical evaluation to remove the source of the infection. After examining the patient and speaking with the patient, I agreed to proceed. I have discussed with the patient that this is a high risk procedure due to his comorbid conditions and his sepsis requiring pressor support and his recent anticoagulation also increase his risk for bleeding. The patient understands all these risks and his chance for postoperative morbidity to include acute renal failure, bleeding, persistent sepsis, postoperative pulmonary problems, cardiac problems, and multisystem organ failure and including the possibility of . I have communicated all these issues to Anesthesia, who is aware and we will proceed as soon as possible. Dictated by... Shaun Vora M.D. PASCUAL/cristian TD: 10/06/2016 02:34 JOB #: [id number] CONSULTATION REPORT X Shaun Vora MD CONSULTATION REPORT
--- NOTE | ~2016-10-02 | HP ---
Unit #: [id number] #: [id number] Patient: ANDRY FERNANDEZ [id number] [address] [place], [place] [address] [id number] I MR#: [id number] NAME: ANDRY FERNANDEZ ROOM: 36020 Age: 51 Sex: M Admission Date: 10/02/2016 : 1965 Attending Physician: Willa Cox M.D. Primary Care Physician: No Primary Care Physician HISTORY AND PHYSICAL CHIEF COMPLAINT Abdominal pain and diarrhea. HISTORY OF PRESENT ILLNESS Mr. Andry Fernandez is a 51-year-old morbidly obese male who is well known to me from multiple admissions in the past. Most recent admission was in August. He was admitted on August 01, 2016 and discharged on August 19, 2016. He had a lengthy stay that time. He was diagnosed with acute hypoxemic respiratory failure, pneumonia, acute kidney injury, C. diff. The patient went home and has not left home since then. He has been having diarrhea since then and has not gotten better at all. He received another antibiotic from Dr. Owen, his primary care provider. He has completed that, also. Yesterday, he had severe abdominal pain, so today he decided to come to the ER because he is not getting better at all. Home health nurse comes and visits him for his right leg wound and overall nursing care and physical therapy. The patient cannot ambulate well at all. He does not complain of vomiting or nausea. He does not complain of fever, chills or rigors. He does complain of generalized fatigue and tiredness. When he arrived in the ER, he had atrial fibrillation. He had rapid ventricular rate and also hypotensive. The patient received IV fluids in the ER, and I am evaluating him in ER bed 1. PAST MEDICAL HISTORY 1. Chronic kidney disease. 2. Hypertension. 3. Atrial fibrillation. 4. Anticoagulation therapy for above. 5. Morbid obesity. 6. Diabetes mellitus. 7. Obstructive sleep apnea. 8. Hyperlipidemia. 9. Chronic back pain. PAST SURGICAL HISTORY 1. History of tonsillectomy. 2. History of eye surgery. SOCIAL HISTORY The patient is on disability. He lives by himself. He uses, I think, a wheelchair to move around. He quit smoking many years ago. He does drink beer off and on. No history of drug abuse. FAMILY HISTORY Not very significant. Some sort of cancer is present, although details are Unit #: [id number] #: [id number] Patient: ANDRY FERNANDEZ not known. ALLERGIES Codeine. HOME MEDICATIONS 1. Mag-Oxide 400 mg b.i.d. 2. Bumex 2 mg daily. 3. Bystolic 20 mg daily. 4. Tribenzor 40/12.5 mg 1 tablet daily. 5. Iron 325 mg p.o. b.i.d. 6. Neurontin 300 mg at bedtime. 7. Eliquis 5 mg b.i.d. 8. Protonix 40 mg b.i.d. 9. Levemir 20 units subcu daily. REVIEW OF SYMPTOMS As per history of present illness. PHYSICAL EXAMINATION GENERAL: The patient is lying in bed. Does not seem to be in any respiratory distress. VITAL SIGNS: Blood pressure is 95/66, respiratory rate 17, pulse 109, temperature 97.5, oxygen saturation is 93%. HEENT: Head is normocephalic. Eye movements are normal. Oral mucosa looks dry. RESPIRATORY: Chest has decreased air entry bilaterally but fair air entry. No wheezing or crackles. CVS: S1, S2 positive. Irregular rhythm. ABDOMEN: Obese. Tenderness all over, generalized. EXTREMITIES: Trace edema is present. Right lower extremity dressing is present. According to him, he has chronic wound. QUALITY MANAGEMENT NURSE: Awake, alert and oriented x3. No focal neurologic deficits. DIAGNOSTIC STUDIES LAB WORKUP: WBC 21.4, hemoglobin 13.5, hematocrit 42, platelet count 177. Lactic acid 1.3, sodium 128, potassium 3.2, chloride 95, BUN 40, creatinine 4.5, calcium 7.2, lipase less than 10. IMAGING: Preliminary CT scan result is colitis, although I do not know the final results. ASSESSMENT AND PLAN 1. The patient is being admitted to telemetry units with acute abdominal pain. 2. Acute colitis. 3. History of C. diff. in August 2016. We need to rule that out. 4. Hypotension. 5. Acute renal failure. 6. Generalized weakness and fatigue. 7. Atrial fibrillation with rapid ventricular rate on arrival, which is stable. 8. Anticoagulation for atrial fibrillation. 9. Morbid obesity. 10. Hyperlipidemia. 11. Diabetes mellitus. PLAN Unit #: [id number] #: [id number] Patient: ANDRY FERNANDEZ Admit to telemetry unit. IV fluids with normal saline at 125 mL an hour is being started. Dr. Myron German from renal will be consulted for acute renal failure. IV Zosyn 2.25 grams q.8 hours will be started. IV Flagyl will be started. Potassium will be replaced. Accu-Cheks a.c. and h.s. with insulin sliding scale will be done. IV Pepcid 20 mg daily. Wound care consult will be done. Healthy heart diet, consistent carb diet. Home medications have been reviewed and adjusted. Plan of care has been discussed with the patient. Dictated by Bunny Woods TD: 10/03/2016 08:15 JOB #: [id number] HISTORY AND PHYSICAL X Willa Cox MD X HISTORY AND PHYSICAL
--- NOTE | ~2016-10-02 | OR ---
Unit #: [id number] #: [id number] Patient: ABDIRIZAK SUMMERS [id number] [address] [address] [id number] I MR#: [id number] NAME: ABDIRIZAK SUMMERS ROOM: [facility] Date of Procedure: 10/09/2016 Admission Date: 10/02/2016 Surgeon: Herve Johnson M.D. : 1965 Attending Physician: Willa Cox M.D. Primary Care Physician: Mirlande Primary Care Physician PROCEDURE OPERATIVE NOTE PROCEDURE PERFORMED Right internal jugular nuclear dialysis catheter placement. INDICATION Renal failure. PREPROCEDURE DIAGNOSIS Renal failure. POST PROCEDURE DIAGNOSIS Renal failure. PROCEDURE After taking consent from the patient's family, after explaining the risks and benefits, the patient was placed in the appropriate position and with modified Seldinger technique under ultrasound guidance, using all aseptic measures, a 16 cm 12-Andorran dialysis catheter was placed in the right internal jugular vein. The guidewire was removed. In total all three ports were flushed and working. The line was secured with two interrupted sutures. No complications. The patient tolerated the procedure very well. A post procedure chest x-ray was ordered. Dictated by... Bunny Ramirez TD: 10/09/2016 12:33 JOB #: [id number] PROCEDURE OPERATIVE NOTE X Herve Johnson MD PROCEDURE OPERATIVE NOTE
--- NOTE | ~2016-10-02 | EKG ---
PATIENT: ABDIRIZAK SUMMERS UNIT #: [id number] Ventricular Rate: 114 BPM Atrial Rate: 114 BPM QRS Duration: 130 ms Q-T Interval: 358 ms QTC Calculation(Bezet): 493 ms Calculated R [place]: -179 degrees Calculated T [place]: 6 degrees Diagnosis Line: Atrial fibrillation with rapid ventricular Diagnosis Line: response Diagnosis Line: Right bundle branch block Diagnosis Line: Possible Lateral infarct (cited on or before Diagnosis Line: 05-OCT-2016) Diagnosis Line: Abnormal ECG Diagnosis Line: When compared with ECG of 05-OCT-2016 14:08, Diagnosis Line: (unconfirmed) Diagnosis Line: No significant change was found Diagnosis Line: Confirmed by BETHANY JONES MD ([id number]) on 10/06/2016 Diagnosis Line: 7:20:12 AM INTERPRETING MD: ROBERT BEATTY
--- NOTE | ~2016-10-02 | OR ---
Unit #: [id number] #: [id number] Patient: ABDIRIZAK SUMMERS [id number] [place] [id number] [facility]. [place], [place] [address] [id number] I MR#: [id number] NAME: ABDIRIZAK SUMMERS ROOM: [facility] Date of Procedure: 10/13/2016 Admission Date: 10/02/2016 Surgeon: Krishan Mendoza M.D. : 1965 Attending Physician: Willa Cox M.D. Primary Care Physician: Primary Care Physician No OPERATIVE REPORT PREOPERATIVE DIAGNOSIS Respiratory failure with prolonged ventilatory support. POSTOPERATIVE DIAGNOSIS Respiratory failure with prolonged ventilatory support. PROCEDURE PERFORMED Insertion of #8 extended proximal length Shiley tracheostomy tube. ANESTHESIA General. ESTIMATED BLOOD LOSS About 5 mL. DRAINS None. COMPLICATIONS None. DESCRIPTION OF PROCEDURE The patient was taken to the operating room and left on his hospital bed in a supine position. After appropriate monitoring lines had been placed, general anesthesia was induced per the endotracheal tube already in place. A rolled sheet was placed beneath the shoulders such as to extend the neck. The neck and upper chest were prepped with DuraPrep and draped in a sterile fashion. A small transverse skin incision was made about a fingerbreadth below the cricoid cartilage. The incision was carried down through the subcutaneous tissue with hemostasis being obtained using the Bovie. Dissection was carried out in a vertical fashion between the strap muscles exposing the thyroid isthmus. The thyroid isthmus was dissected free from the anterior wall of the trachea. It was then clamped on each side prior to cutting. Suture ligatures of 3-0 silk were placed to control bleeding from the cut edges of the thyroid isthmus. Further hemostasis was obtained using the Bovie. A tracheal hook was placed beneath the cricoid cartilage and used to elevate the trachea. A small opening was made in the anterior wall of the trachea between rings 2 and 3. This area was spread with a hemostat. The endotracheal tube was withdrawn to just above this level. The Blue Rhino dilator was passed over a guide catheter and then they were passed into the trachea at this point to dilate the opening in the tracheal wall. The Blue Rhino dilator Unit #: [id number] #: [id number] Patient: ABDIRIZAK SUMMERS was removed keeping the guide catheter in place. A #8 extended proximal length Shiley tracheostomy tube was chosen with the appropriate size dilator placed inside. They were then passed over the guide catheter into the trachea. The guide catheter and dilator were removed. The inner cannula was inserted into the tracheostomy tube and the balloon inflated. The patient was then ventilated per this new tracheostomy tube. 3-0 silk suture was placed in each end of the incision to close it down slightly. The tracheostomy tube was sutured in place to the skin using 2-0 silk suture. A cut drain sponge was cut to appropriate size and placed beneath the tracheostomy tube. Tracheostomy tube was also secured in place using an adjustable tracheostomy collar. Estimated blood loss in the procedure was about 5 mL. Sponge and needle counts in the operation were correct. The patient tolerated the procedure well and left the operating room in satisfactory condition. Dictated by... Bunny Majano/cristian TD: 10/15/2016 18:12 JOB #: [id number] OPERATIVE REPORT X Krishan Mendoza MD X PROCEDURE OPERATIVE NOTE
--- NOTE | ~2016-10-02 | CR71 ---
[facility] A Service of [facility] & [facility] RADIOLOGY TEXT RESULTS PATIENT: ABDIRIZAK SUMMERS LOCATION: [address] : [birth year] UNIT #: [id number] AGE: [address]: Willa Cox MD SEX: M ORDER DR: [id number] [facility] [address] [place], [place] [address] [id number] I MR#: [id number] Acc #: [id number] NAME: ABDIRIZAK SUMMERS : 1965 SEX: M STUDY DATE/TIME: 10/16/2016 3:32 UNIT: [facility] ROOM: [facility] STUDY DESCRIPTION: CR Chest Single View Attending Physician: Willa Cox M.D. Ordering Physician: Herve Johnson M.D. Primary Care Physician: No Primary Care Physician MEDICAL IMAGING REPORT This report is preliminary unless electronic signature is present EXAM AP portable chest 10/16/2016 HISTORY Follow up respiratory failure. Sepsis. TECHNIQUE AP portable upright chest x-ray. FINDINGS The exam shows no significant change since yesterday. Tracheostomy tube and bilateral IJ vascular catheters remain in good position with NG tube extending below the diaphragm. Infiltrate or atelectasis in both lung bases and probable small pleural effusions. Upper lungs remain clear. Low lung volumes. IMPRESSION Stable portable chest radiograph, unchanged since yesterday. Dictated by... Robbie Nassar M.D. THIS IS AN ELECTRONICALLY VERIFIED REPORT Robbie Nassar M.D. at 10/17/2016 5:30 AM REINA/jd TD: 10/17/2016 02:27 JOB #: [id number] MEDICAL IMAGING REPORT COPY
--- NOTE | ~2016-10-02 | CR72 ---
[facility] A Service of [facility] & [facility] RADIOLOGY TEXT RESULTS PATIENT: ABDIRIZAK SUMMERS LOCATION: [address] : [birth year] UNIT #: [id number] AGE: [address]: Willa Cox MD SEX: M ORDER DR: [id number] [facility]. [place], [place] [address] [id number] I MR#: [id number] Acc #: [id number] NAME: ABDIRIZAK SUMMERS : 1965 SEX: M STUDY DATE/TIME: 10/13/2016 16:38 UNIT: [facility] ROOM: [facility] STUDY DESCRIPTION: CR Chest Single View Portable Attending Physician: Willa Cox M.D. Ordering Physician: Krishan Mendoza M.D. Primary Care Physician: Primary Care Physician No MEDICAL IMAGING REPORT This report is preliminary unless electronic signature is present EXAM Portable chest HISTORY Status post tracheostomy procedure, respiratory failure, hypotension, sepsis, tracheostomy procedure today. COMPARISON 10/13/2016 at 0322 hours. FINDINGS 2 portable views of the chest submitted. There has been placement of a tracheostomy tube which appears well sized and positioned distal tip about 3.2 cm above the dakotah. Left neck approach central line terminates in the region of the brachiocephalic SVC junction. There is also a right neck approach double-lumen catheter terminating mid-SVC. No significant change in cardiopulmonary status. Continued loss of both hemidiaphragms and blunting of both CP angles compatible with small to moderate bilateral effusions. Mild pulmonary vascular congestion. Stable cardiomediastinal silhouette. No visible pneumothorax. There is some lucency projecting over the upper thorax could relate to postsurgical gas related to tracheostomy procedure but again no pneumothorax. Dictated by... Epifanio Mendosa M.D. THIS IS AN ELECTRONICALLY VERIFIED REPORT Epifanio Mendosa M.D. at 10/14/2016 8:42 PM ANKIT/diana TD: 10/14/2016 08:13 [facility] A Service of [facility] & [facility] RADIOLOGY TEXT RESULTS PATIENT: ABDIRIZAK SUMMERS LOCATION: [facility] [id number] : [birth year] UNIT #: [id number] AGE: [address]: Willa Cox MD SEX: M ORDER DR: JOB #: [id number] MEDICAL IMAGING REPORT COPY
--- NOTE | ~2016-10-02 | CT4 ---
[facility] A Service of [facility] RADIOLOGY TEXT RESULTS PATIENT: ABDIRIZAK SUMMERS LOCATION: [facility]-07 : [birth year] UNIT #: [id number] AGE: [address]: Willa Cox MD SEX: M ORDER DR: [id number] [facility] [address] [facility]. [place], [place] [address] [id number] I MR#: [id number] Acc #: [id number] NAME: ABDIRIZAK SUMMERS : 1965 SEX: M STUDY DATE/TIME: 10/02/2016 17:03 UNIT: [facility] ROOM: 39510 STUDY DESCRIPTION: CT Abd and Pelv Wo Cont Attending Physician: Willa Cox M.D. Ordering Physician: Ambrosio Barron M.D. Primary Care Physician: Primary Care Physician No MEDICAL IMAGING REPORT This report is preliminary unless electronic signature is present EXAM CT abdomen and pelvis without contrast HISTORY Vomiting, diarrhea and diffuse abdomen pain for several weeks. TECHNIQUE This CT exam was performed with one or more of the following radiation dose reduction techniques: automatic exposure control, adjustment of mA and/or kV according to patient size, and iterative reconstruction. FINDINGS CT abdomen and pelvis was performed without contrast. CT ABDOMEN: Diffuse fatty infiltration of the liver. Moderately extensive diffuse wall thickening of the left colon extending from the splenic flexure through the descending and sigmoid colon with mild adjacent pericolonic stranding. No bowel dilatation. No ascites. The spleen, kidneys, and adrenal glands are normal. Generalized pancreatic parenchymal atrophy. Gallbladder is normal. Normal caliber abdominal aorta. CT PELVIS: Diffuse moderate rectal wall thickening with mild perirectal stranding. Normal appendix. No ascites. No loculated fluid collection. Urinary bladder is normal. IMPRESSION 1. Moderate diffuse wall thickening in the left colon from the splenic flexure through the descending and sigmoid colon and moderate diffuse wall thickening of the rectum with associated pericolonic and perirectal stranding characteristic of a segmental infectious or inflammatory proctocolitis. 2. No bowel obstruction. [facility] A Service of [facility] RADIOLOGY TEXT RESULTS PATIENT: ABDIRIZAK SUMMERS LOCATION: [facility]- : 63 UNIT #: [id number] AGE: [address]: Willa Cox MD SEX: M ORDER DR: 3. No abscess or free fluid. 4. Diffuse fatty infiltration of the liver. 5. Normal appendix. Dictated by... Olaf Khalil M.D. THIS IS AN ELECTRONICALLY VERIFIED REPORT Olaf Khalil M.D. at 10/03/2016 1:56 PM Fab TD: 10/03/2016 09:47 JOB #: [id number] MEDICAL IMAGING REPORT COPY
--- NOTE | ~2016-10-02 | OR ---
Unit #: [id number] #: [id number] Patient: ABDIRIZAK SUMMERS [id number] [address] [place], [place] [address] [id number] I MR#: [id number] NAME: ABDIRIZAK SUMMERS ROOM: [facility] Date of Procedure: 10/04/2016 Admission Date: 10/02/2016 Surgeon: Alejo German M.D. : 1965 Attending Physician: Willa Cox M.D. Primary Care Physician: Mirlande Primary Care Physician PROCEDURE OPERATIVE NOTE PROCEDURE PERFORMED Left radial arterial line placement with ultrasound guidance. INDICATION FOR PROCEDURE Septic shock. PRE-OP DIAGNOSIS C. diff. colitis and septic shock. COMPLICATIONS None. DESCRIPTION OF THE PROCEDURE Informed consent was obtained from the patient after explaining the benefits and risks of this procedure. The patient was prepped and positioned in the proper way. Then, a clean drape was applied to the left wrist. Then, with ultrasound-guidance, a needle was inserted in the left radial artery until blood flow was obtained. Then, a guidewire was inserted, and the needle was removed. Then, a catheter was threaded over the guidewire with no complication. The catheter was sutured in place and hooked to a monitor with good arterial wave. A clean dressing was applied. The patient tolerated this procedure well with no immediate complication. Dictated by... Bunny Zabala TD: 10/06/2016 07:37 JOB #: [id number] PROCEDURE OPERATIVE NOTE X ALEJO CONTEH MD PROCEDURE OPERATIVE NOTE
--- NOTE | ~2016-10-02 | CR72 ---
[facility] A Service of [facility] RADIOLOGY TEXT RESULTS PATIENT: ABDIRIZAK SUMMERS LOCATION: [place] [address] : [birth year] UNIT #: [id number] AGE: [address]: Willa Cox MD SEX: M ORDER DR: [id number] [facility] [address] [facility]. [place], [place] [address] [id number] I MR#: [id number] Acc #: [id number] NAME: ABDIRIZAK SUMMERS : 1965 SEX: M STUDY DATE/TIME: 10/09/2016 4:54 UNIT: [facility] ROOM: [facility] STUDY DESCRIPTION: CR Chest Single View Portable Attending Physician: Willa Cox M.D. Ordering Physician: Herve Johnson M.D. Primary Care Physician: No Primary Care Physician MEDICAL IMAGING REPORT This report is preliminary unless electronic signature is present EXAMINATION AP portable chest DATE 10/09/2016 HISTORY Shortness of breath, atrial fibrillation, intubation. Symptoms began approximately 8 days ago. Additional history of diabetes, atrial fibrillation and colitis. COMPARISON AP portable chest 10/08/2016 FINDINGS Small right greater than left pleural effusions are present, the right pleural effusion may be increased. Airspace disease in the bilateral lower lobes also appears slightly increased compared to the prior study. Right IJ central line, ET tube, NG tube appear unchanged. Left subclavian approach central line extends to the left subclavian - brachiocephalic region, unchanged. No visible pneumothorax. IMPRESSION 1. Bibasilar airspace disease appears increased since 10/08/2016. Small right pleural effusion appears slightly increased, as well. 2. The supporting lines and tubes appear stable. No visible pneumothorax. Dictated by... Melinda Puente M.D. THIS IS AN ELECTRONICALLY VERIFIED REPORT Melinda Puente M.D. at 10/10/2016 9:59 PM [facility] A Service of [facility] RADIOLOGY TEXT RESULTS PATIENT: ABDIRIZAK SUMMERS LOCATION: [facility]2-07 : 63 UNIT #: [id number] AGE: [address]: Willa Cox MD SEX: M ORDER DR: DILSHAD/jd TD: 10/09/2016 23:36 JOB #: [id number] MEDICAL IMAGING REPORT COPY
--- NOTE | ~2016-10-02 | CT4 ---
[facility] A Service of [facility] RADIOLOGY TEXT RESULTS PATIENT: ABDIRIZAK SUMMERS LOCATION: [address] : [birth year] UNIT #: [id number] AGE: [address]: Willa Cox MD SEX: M ORDER DR: [id number] [place] [id number] [facility]. [place], [place] [address] [id number] I MR#: [id number] Acc #: [id number] NAME: ABDIRIZAK SUMMERS : 1965 SEX: M STUDY DATE/TIME: 10/17/2016 10:40 UNIT: [facility] ROOM: [facility] STUDY DESCRIPTION: CT Abd and Pelv Wo Cont Attending Physician: Willa Cox M.D. Ordering Physician: Osei Arias M.D. Primary Care Physician: No Primary Care Physician MEDICAL IMAGING REPORT This report is preliminary unless electronic signature is present EXAM CT abdomen and pelvis with oral contrast 10/17/2016 HISTORY Sepsis after exploratory laparotomy COMPARISON CT dated 10/02/[address] abdomen and pelvis This CT exam was performed with one or more of the following radiation dose reduction techniques: Automatic exposure control, adjustment of mA and/or kV according to patient size, and iterative reconstruction. FINDINGS The prior CT exam showed some thickening of the colon. On the current exam, there is motion degradation. There is perihepatic ascites. There are no thickened bowel loops or abnormal fluid collections or evidence of free air or obstruction and oral contrast has reached the distal small bowel and appears to have begun to reach the right colon. IMPRESSION Somewhat motion degraded study also limited by body habitus but allowing for that there is no acute appearing abnormality. There is no compelling evidence of renal or bowel or biliary obstruction or other acute process. Oral contrast has filled the majority of the small bowel and appears to be beginning to reach the right colon. There is some perihepatic ascites and, again, the study is limited by body habitus and motion. [facility] A Service of [facility] RADIOLOGY TEXT RESULTS PATIENT: ABDIRIZAK SUMMERS LOCATION: [facility]07 : 63 UNIT #: [id number] AGE: [address]: Willa Cox MD SEX: M ORDER DR: Dictated by... Marcello Garcia M.D. THIS IS AN ELECTRONICALLY VERIFIED REPORT Marcello Garcia M.D. at 10/19/2016 1:48 PM TEV/bd TD: 10/18/2016 09:45 JOB #: [id number] MEDICAL IMAGING REPORT Page 1 of 1 COPY
--- NOTE | ~2016-10-02 | OR ---
Unit #: [id number] #: [id number] Patient: ABDIRIZAK SUMMERS [id number] [address] [place], [place] [address] [id number] I MR#: [id number] NAME: ABDIRIZAK SUMMRES ROOM: [id number] Date of Procedure: 10/02/2016 Admission Date: 10/02/2016 Surgeon: Alejo German M.D. : 1965 Attending Physician: Willa Cox M.D. Primary Care Physician: Mirlande Primary Care Physician PROCEDURE OPERATIVE NOTE PROCEDURE Left IJ central venous catheter placement with ultrasound guidance. INDICATION FOR PROCEDURE Septic shock. PRE-OP DIAGNOSIS Colitis. COMPLICATIONS None. DESCRIPTION OF THE PROCEDURE Informed consent was obtained from the patient after explaining the benefits and risks of this procedure. The patient was prepped and positioned in the proper way. Then, with ultrasound guidance, a needle was inserted in the left IJ until blood flow was obtained. Then, guidewire was inserted and the needle was removed. Then, a dilator was used to create the tract in the soft tissue. Then, the catheter was inserted over the guidewire, and the guidewire was removed. The catheter was sutured in place and flushed appropriately. Then, body drape and Biopatch were applied. A STAT x-ray is pending at the time of dictation. Dictated by... Alejo German M.D. EA/ronnie TD: 10/03/2016 09:33 JOB #: [id number] PROCEDURE OPERATIVE NOTE X ALEJO CONTEH MD PROCEDURE OPERATIVE NOTE
--- NOTE | ~2016-10-02 | FU ---
[facility] Nutrition Therapy DATE: 10/06/16 Patient: ABDIRIZAK LAKEQASIMJoseph Physician: TERESA Address: [address] [place] [address] Room/Bed: [address], Zip: [place] [address] Admit Date: 10/02/16 Date of : [birth year] Height: 5 9 Weight: 396 180 NUTRITION MONITORING/FOLLOW-UP: Reason: PT SEEN FOR FOLLOW-UP/INTUBATED/?TPN EVAL DX: DIARRHEA & ABD CRAMPING, ARF Anthropometrics: 5'8", WT: 396# (180 KG), BMI: 60.2 -ADMIT WEIGHT: 375# (170 KG), BMI: 57.0 Labs: GLU: 169, BUN: 26, CA+:7.1, ALB: 1.2, NA+:131, PHOS: 2.2, PRE-ALB: <2.0, GFR: 56.6 Meds: NACL, TPN (NOT ORDERED), FENTANYL, PEPCID, NOVOLOG, ZOFRAN, KCL I&O's: 8839/3180 Skin: ISSUES NOTED EDEMA: PEDAL/ANKLE 2+ EDEMA Estimated Nutrition Needs: 8305-5018 KCAL (12-15 KCAL/KG BW) 105-140 G PRO (1.5-2.0 G PRO/KG IBW) FLUIDS CONSISTENT W/KCAL NEEDS OR MANAGE PER MD Assessment: CHART REVIEWED AND EVENTS NOTED. PT SEEN FOR FOLLOW-UP. PT CURRENTLY INTUBATED AND SEDATED AT TIME OF VISIT. PT IS S/P EXPLORATORY LAP REVEALING NO ISSUES AT THIS TIME. PER RN AND CHART, ?TPN BUT PT HEMODYNAMICALLY UNSTABLE TO BEGIN TPN. NO FAMILY IN ROOM AT THIS TIME. RD TO CONTINUE TO FOLLOW. SEE RECOMMENDATIONS AT THIS TIME. TPN NOT INDICATED FOR PT Dx: ALTERED NUTRIENT NEEDS R/T DX, CURRENT CONDITION AEB NPO STATUS, ALTERED LAB VALUES. Intervention: 1. NPO 2. ?TPN Monitoring, Evaluation and Goals: 1. ENTERAL NUTRITION; PROVIDE 100% ESTIMATED NUTRIENT NEEDS; TOLERATE EN AT GOAL W/NO SIGNS OF INTOLERANCE 2. WEIGHTS; PROMOTE GRADUAL WEIGHT LOSS TOWARDS HEALTHY BMI 3. LABS; WNL 4. GI; PROMOTE REGULAR GI FUNCTION MONITOR: -WEIGHTS -PLANS FOR SUPPORT -LABS [facility] Nutrition Therapy DATE: 10/06/16 Patient: ABDIRIZAK MELINA Physician: TERESA Address: [address] [place] [address] Room/Bed: [address], Zip: [place] [address] Admit Date: 10/02/16 Date of : [birth year] Height: 5 9 Weight: 396 180 -EXTUBATION? Recommendations: 1. TPN NOT MEDICALLY INDICATED FOR PT!! 2. ONCE MEDICALLY FEASIBLE AND PT REMAINS INTUBATED, RECOMMEND TO BEGIN ALTERNATIVE NUTRITION SUPPORT OF VITAL HIGH PROTEIN @ 20 ML/HR, ADVANCE 10 ML q 8 HOURS TO GOAL RATE OF 65 ML/HR -PROVIDES 1560 KCAL, 137 G PRO, 1310 ML FREE H20 ADD FREE H20 FLUSHES PER MD OF NOTE, VITAL HIGH PROTEIN INDICATED FOR CRITIAL ILLNESS W/GI IMPAIRMENT 3. ONCE PT EXTUBATED, ADVANCE DIET PER RECEIVING CLERK + CC+HH + [address] WILL F/U PER PROTOCOL PT IS SEVERELY COMPROMISED Respectfully, ROSALVA GONG MS, RD, LD Food and Nutritional Services [facility] cc: client file
--- NOTE | ~2016-10-02 | FU ---
[facility] Nutrition Therapy DATE: 10/09/16 Patient: ABDIRIZAK SUMMERS Physician: TERESA Address: [address] [place] [address] Room/Bed: [address], Zip: [place] [phone] Admit Date: 10/02/16 Date of : [birth year] Height: 5 9 Weight: 436 198.1 NUTRITION MONITORING/FOLLOW-UP: Reason: PT SEEN FOR FOLLOW-UP DX: DIARRHEA AND ABD CRAMPING, ARF Anthropometrics: 5'8", WT: 436# (198 KG), BMI: 66.3 -ADMIT WEIGHT: 375# (170 KG) Labs: GLU: 137, BUN: 30, CA+:6.8, ALB: 1.1, AST: 64, PRE-ALB: <2.0 (10/06/16), NA+:130 Meds: NACL, FENTANYL, PEPCID, NOVOLOG, ZOFRAN, KCL I&O's: 8323/1280 Skin: PER RN: NO BM SINCE 10/04/16 EDEMA: PEDAL/ANKLE 2+ EDEMA; ABD GENERALIZED EDEMA Estimated Nutrition Needs: 1896-1710 KCAL 105-140 G PRO Assessment: CHART REVIEWED AND EVENTS NOTED. PT SEEN FOR FOLLOW-UP. PT CONTINUES TO BE INTUBATED AND SEDATED. OF NOTE, PT NPO X 3 DAYS. PER ROUNDS, PT HEMODYNAMICALLY UNSTABLE AT THIS TIME. NO CHANGES SINCE RD FOLLOW-UP ON 10/06/16. NO FAMILY IN ROOM AT THIS TIME. RD TO CONTINUE TO FOLLOW. Dx: INADEQUATE ORAL INTAKE R/T CURRENT CLINICAL CONDITION AEB PT INTUBATED AND SEDATED, PT NPO X 3 DAYS. Intervention: 1. NPO X 3 DAYS!! Monitoring, Evaluation and Goals: GOALS NOT MET 1. ENTERAL/PARENTERAL NUTRITION; PROVIDE 80-100% ESTIMATED NEEDS AT GOAL W/NO SIGNS OF INTOLERANCE 2. LABS; WNL 3. GI; PROMOTE REGULAR GI FUNCTION 4. WEIGHTS; PROMOTE GRADUAL WEIGHT LOSS MONITOR: -PLANS FOR SUPPORT -WEIGHTS -LABS [facility] Nutrition Therapy DATE: 10/09/16 Patient: ABDIRIZAK SUMMERS Physician: TERESA Address: [address] [place] [address] Room/Bed: [address], Zip: [place] [address] Admit Date: 10/02/16 Date of : [birth year] Height: 5 9 Weight: 436 198.1 Recommendations: 1. PT AT RISK FOR RE-FEEDING SYNDROME. PT NPO X 3 DAYS. REPLETE ELECTROLYTES BEFORE INITIATION OF ENTERAL/PARENTERAL NUTRITION 2. ONCE MEDICALLY FEASIBLE, BEGIN ALTERNATIVE NUTRITION SUPPORT OF VITAL HIGH PROTEIN @ 10 ML/HR, ADVANCE 10 ML q 8 HOURS TO GOAL RATE OF 65 ML/HR -PROVIDES 1560 KCAL, 137 G PRO, 1310 ML FREE H20 ADD FREE H20 FLUSHES PER MD 2' HYPONATREMIA NOTED 3. IF TPN WARRENTED, RECOMMEND TO BEGIN STANDARD TPN 25% DEXTROSE, 5% AA @ 20 ML/HR, ADVANCE 10 ML q 12 HOURS TO GOAL RATE OF 95 ML/HR -PROVIDES 114 G PRO, 1938 NON-PROTEIN KCAL, 2394 TOTAL KCAL (GUR: 2.3) ADD LIPIDS q 3 DAYS TO PREVENT FATTY ACID DEFICIENCY MONITOR LABS DAILY 4. ONCE PT EXTUBATED, ADVANCE DIET PER GEOTHERMAL PLANT MANAGER + CC/HH DIET RD WILL F/U PER PROTOCOL PT IS SEVERELY COMPROMISED Respectfully, ROSALVA GONG MS, RD, LD Food and Nutritional Services [facility] [place] [facility] cc: client file
--- NOTE | ~2016-10-02 | CR72 ---
[facility] A Service of [facility] & [facility] RADIOLOGY TEXT RESULTS PATIENT: ABDIRIZAK SUMMERS LOCATION: [address] : [birth year] UNIT #: [id number] AGE: [address]: Willa Cox MD SEX: M ORDER DR: [id number] [facility] [address] [facility]. [place], [place] [address] [id number] I MR#: [id number] Acc #: [id number] NAME: ABDIRIZAK SUMMERS : 1965 SEX: M STUDY DATE/TIME: 10/05/2016 6:06 UNIT: [facility] ROOM: [facility] STUDY DESCRIPTION: CR Chest Single View Portable Attending Physician: Willa Cox M.D. Ordering Physician: Rodríguez Salcedo M.D. Primary Care Physician: Primary Care Physician No MEDICAL IMAGING REPORT This report is preliminary unless electronic signature is present Portable chest 10/05/2016 HISTORY Shortness of breath, hypotension, atrial fibrillation, elevated troponin levels. Symptoms for 3 days since 10/02/2016. Benign essential hypertension and diabetes. FINDINGS The heart is enlarged but stable compared with 10/02/2016. Left internal jugular central line is unchanged. There is elevation of the right hemidiaphragm with atelectasis at the lung bases. Lungs are otherwise clear. There are no pleural effusions. IMPRESSION No interval change compared with 10/02/2016. Dictated by... Joseph Armendariz M.D. THIS IS AN ELECTRONICALLY VERIFIED REPORT Joseph Armednariz M.D. at 10/06/2016 2:24 PM EMORY/tiesha TD: 10/05/2016 11:14 JOB #: [id number] MEDICAL IMAGING REPORT COPY
--- NOTE | ~2016-10-02 | CR71 ---
[facility] A Service of [facility] & [facility] RADIOLOGY TEXT RESULTS PATIENT: ABDIRIZAK SUMMERS LOCATION: [address] : [birth year] UNIT #: [id number] AGE: [address]: Willa Cox MD SEX: M ORDER DR: [id number] [facility] [address]. [place], [place] [address] [id number] I MR#: [id number] Acc #: [id number] NAME: ABDIRIZAK SUMMERS : 1965 SEX: M STUDY DATE/TIME: 10/18/2016 6:16 UNIT: [facility] ROOM: [facility] STUDY DESCRIPTION: CR Chest Single View Attending Physician: Willa Cox M.D. Ordering Physician: Willa Cox M.D. Primary Care Physician: Primary Care Physician No MEDICAL IMAGING REPORT This report is preliminary unless electronic signature is present EXAM Frontal chest 10/18/2016 INDICATIONS Intubated patient. Shiley in place. Respiratory failure, sepsis, C difficile infection, symptoms 16 days. Tracheostomy placed 10/13/2016. Hypertension and COPD. TECHNIQUE Frontal chest compared with 10/17/2016 FINDINGS Tracheostomy tube in good position above the dakotah. Right and left-sided central lines from neck approach bilaterally unchanged. There is enteric tube present and the tip is below the diaphragms and not in the field of view. The patient is rotated to the right. Cardiac silhouette borderline enlarged but stable. Haziness throughout the left lung is unchanged and may represent layering pleural fluid. Asymmetric atelectasis or faint infiltrate. Probable trace to small right effusion. No pneumothorax. There is gaseous distension of the stomach. IMPRESSION Tubes and lines are in satisfactory position. No pneumothorax. No significant change from 10/17/2016. Dictated by... Jorge Rose M.D. THIS IS AN ELECTRONICALLY VERIFIED REPORT Jorge Rsoe M.D. at 10/18/2016 2:31 PM JM/ish TD: 10/18/2016 12:35 [facility] A Service of [facility] & [facility] RADIOLOGY TEXT RESULTS PATIENT: ABDIRIZAK SUMMERS [facility]ATION[id number] : [birth year] UNIT #: [id number] AGE: [address]: Willa Cox MD SEX: M ORDER DR: JOB #: [id number] MEDICAL IMAGING REPORT COPY
--- NOTE | ~2016-10-02 | CR72 ---
[facility] A Service of [facility] & [facility] RADIOLOGY TEXT RESULTS PATIENT: ABDIRIZAK SUMMERS LOCATION: [address] : [birth year] UNIT #: [id number] AGE: [address]: Willa Cox MD SEX: M ORDER DR: [id number] [facility] [address] [facility] [facility]. [place], [place] [address] [id number] I MR#: [id number] Acc #: [id number] NAME: ABDIRIZAK SUMMERS : 1965 SEX: M STUDY DATE/TIME: 10/02/2016 20:35 UNIT: [facility] ROOM: [facility] STUDY DESCRIPTION: CR Chest Single View Portable Attending Physician: Willa Cox M.D. Ordering Physician: Ambrosio Barron M.D. Primary Care Physician: Primary Care Physician No MEDICAL IMAGING REPORT This report is preliminary unless electronic signature is present EXAM AP radiograph of the chest COMPARISON 08/07/2016 FINDINGS The current radiograph is in a lordotic projection and a markedly left anterior oblique projection. There is a left neck approach central vascular catheter in place which terminates projecting to the right of midline superimposed over the ascending aorta. The path appears slightly different than on a radiograph from August 2016 where there was also a left neck approach central vascular catheter which had an appearance typical for termination in the superior vena cava. I would favor that the current catheter also terminates in the superior vena cava and the appearance is a function of the lordotic left anterior oblique projection. Strictly speaking, however I cannot exclude that the catheter terminates in the ascending aorta. True AP or PA upright radiograph of the chest is strongly recommended for clarification of central catheter placement. Findings discussed directly with Dr. German by telephone at time of this dictation. No acute-appearing bony abnormality. The lungs are moderately well inflated. Slight elevation right hemidiaphragm is stable. Pulmonary vasculature less prominent than on prior examination. There is no compelling evidence of jesse pulmonary edema or pneumonia. No pleural effusion. No pneumothorax. Dictated by... Richard Munguia M.D. THIS IS AN ELECTRONICALLY VERIFIED REPORT Richard Munguia M.D. at 10/04/2016 4:25 PM [facility] A Service of [facility] & [facility] RADIOLOGY TEXT RESULTS PATIENT: ABDIRIZAK SUMMERS LOCATION: [place] [address] : [birth year] UNIT #: [id number] AGE: [address]: Willa Cox MD SEX: M ORDER DR: TD: 10/03/2016 13:16 JOB #: [id number] MEDICAL IMAGING REPORT COPY
--- NOTE | ~2016-10-02 | CO ---
Unit #: [id number] #: [id number] Patient: ABDIRIZAK FERNANDEZ [id number] [address] [address] [id number] I MR#: [id number] NAME: ABDIRIZAK FERNANDEZ ROOM: [facility] Age: 51 Sex: M Admission Date: 10/02/2016 : 1965 Attending Physician: Willa Cox M.D. Requesting Physician: Rita German M.D. CONSULTATION REPORT REASON FOR CONSULTATION Tracheostomy placement. HISTORY OF PRESENT ILLNESS Mr. Fernandez is a 51-year-old male who was admitted to [facility] with a three week history of diarrhea. He was admitted with sepsis with C. difficile colitis. He underwent exploratory laparotomy on October 05, 2016, under the direction of Dr. Vora. He has undergone A-line placement, hemodialysis catheter placement, and multiple bronchoscopies. Now, he is with failure to wean from the respiratory and request for trach has been received. PAST MEDICAL HISTORY 1. Chronic atrial fibrillation, on Eliquis at home, now on argatroban due to heparin being discontinued due to a severe drop in platelets, and a HIT panel is being processed. 2. Hypertension. 3. Obstructive sleep apnea. 4. Diabetes mellitus. 5. Acute kidney injury on chronic kidney disease, currently on hemodialysis. 6. Sepsis. 7. Cardiomyopathy with an ejection fraction of 15% to 20%. PAST SURGICAL HISTORY 1. Tonsillectomy. 2. Appendectomy with a recent exploratory laparotomy. 3. Some type of finger surgery. SOCIAL HISTORY He lives at home. Nonsmoker. Smoked several years of his life but quit 15 years ago. He has an occasional alcoholic beverage. Denies any illicit drugs. CURRENT MEDICATIONS 1. Argatroban drip. 2. Fentanyl drip. 3. Vancomycin. 4. Famotidine. 5. Midodrine. 6. Aspirin. 7. Reglan. 8. NovoLog insulin coverage. 9. Metronidazole. Unit #: [id number] #: [id number] Patient: ABDIRIZAK FERNANDEZ 10. Meropenem. 11. Linezolid. 12. Fluconazole. MEDICATION ALLERGIES CODEINE CAUSED GASTRIC DISTRESS. REVIEW OF SYSTEMS Unable to obtain review of systems due to patient being orally intubated. PHYSICAL EXAMINATION VITAL SIGNS: Temperature is 98.3, heart rate 114, respiratory rate 18, and blood pressure 100/59. Ventilator settings: FIO2 of 50% and respirations are 20. GENERAL: Mr. Fernandez is a morbidly obese, 51-year-old male who withdraws from pain with tactile stimulation. However, nurse reports that when his sedation is off, he is able to follow simple commands. HEENT: Normocephalic. No facial asymmetry. He does have injected sclerae, but they are anti-icteric. He is orally intubated. LUNGS: Coarse bilaterally. CARDIOVASCULAR: S1 and S2 without rub, without murmur. He does have an S3 but no S4, and he does have 3+ peripheral edema. He has a right IJ dialysis catheter in place, and CRRT is in progress. ABDOMEN: Large, round, pendulous. There are hypoactive bowel sounds noted. EXTREMITIES: With hemosiderin deposits and lipodermatosclerosis. He has 4+ peripheral edema. DIAGNOSTIC STUDIES LABORATORY: Platelets are 90,000. Within 24 hours they dropped from the 200,000s to 90,000. Heparin was discontinued. A HIT panel was sent, and he has been on argatroban ever since. His hemoglobin is 11.6, hematocrit 35.2, and WBC 8.8. BUN 20, creatinine 0.8, sodium 134, and potassium 3.7. His PTT today is 70.6. IMPRESSION 1. Acute on chronic respiratory failure with failure to wean from the respiratory. 2. Sepsis. 3. Clostridium difficile, severe, requiring exploratory laparotomy with incidental appendectomy with removal of adhesions. 4. Acute on chronic renal failure, on dialysis. 5. Left ventricular function is 15% to 20% with chronic atrial fibrillation with RVR. However, rate is stable at present. PLAN Dr. Mendoza has met with and examined Mr. Fernandez. He will do a tracheostomy in the OR on October 12, 2016. We will hold the argatroban at 2 a.m. on October 12, 2016, as we have discussed plans with pharmacy, and they are in agreement. We will recheck levels at 4 a.m. tomorrow and then again at noon before surgery. He is n.p.o. after midnight, and consent for tracheostomy needs to be obtained. Dictated by... Angella Dozier A.P.R.N. for Krishan Mendoza M.D. /miguel a Unit #: [id number] #: [id number] Patient: ABDIRIZAK FERNANDEZ TD: 10/11/2016 14:35 JOB #: [id number] CONSULTATION REPORT X Angella Dozier APRN X CONSULTATION REPORT
--- NOTE | ~2016-10-02 | OR ---
Unit #: [id number] #: [id number] Patient: ABDIRIZAK SUMMERS [id number] [address] [place], [place] [address] [id number] I MR#: [id number] NAME: ABDIRIZAK SUMMERS ROOM: [facility] Date of Procedure: 10/05/2016 Admission Date: 10/02/2016 Surgeon: Shaun Vora M.D. : 1965 Attending Physician: Willa Cox M.D. Primary Care Physician: Primary Care Physician No OPERATIVE REPORT PREOPERATIVE DIAGNOSES Progressive septic shock from Clostridium difficile colitis. POSTOPERATIVE DIAGNOSES Progressive septic shock from Clostridium difficile colitis. PROCEDURES PERFORMED Exploratory laparotomy, lysis of adhesions, incidental appendectomy, washout of the abdominal cavity. ANESTHESIA General endotracheal anesthesia. ESTIMATED BLOOD LOSS Less than 100 mL. FINDINGS The patient had a markedly distended stomach, but on full exploration of the abdominal cavity, there was no compromise to ischemic bowel and there was no erythema or colonic wall edema or thickening in the colon. INDICATIONS FOR PROCEDURE Mr. Lozoya is a 51-year-old gentleman, who was admitted to the ER with sepsis to the intensive care unit under the care of Dr. German. The patient was resuscitated and started on antibiotics and diagnosed with C diff colitis both radiographically and by stool study. Despite aggressive antibiotic therapy by the remote mortgage underwriter, the patient continued to have sepsis, requiring increasing pressor support and was noted becoming acidotic. His lactic acid gone from 1 to 2.3 and his abdominal distention and discomfort had increased according to Dr. German. We were consulted because of the concern about progressive colonic ischemia and his failure to respond to nonoperative management. DESCRIPTION OF PROCEDURE The patient was transported from his hospital room to the operating room, and after induction of general endotracheal anesthesia, a nasogastric tube was placed and he was prepped and draped in usual sterile fashion. The patient was already on antibiotics under direction of Infectious Disease service and the remote mortgage underwriter. Midline incision was made and dissected down through the soft tissue, entered the peritoneal cavity. Upon entering the peritoneal cavity, there was no foul smelling fluid, but he did have a lot of ascites. I eviscerated the small bowel which was not ischemic and then Unit #: [id number] #: [id number] Patient: ABDIRIZAK SUMMERS ran the entire colon from the cecum to the rectum. On careful evaluation of the colon, there was no evidence of ischemia or full thickness colitis. He did have some colonic ileus, but again he did not have any wall thickening, erythema, or evidence of any ischemia. In mobilizing the cecum to evaluate, the mesial appendix was compromised, so an incidental appendectomy was performed and the appendiceal stump was inverted with a pursestring suture. The gallbladder was evaluated and it was edematous, but not infected and there were no palpable stones. The stomach had been markedly distended, but the NG tube reduced the distention. The duodenal sweep had no evidence of ulcer disease. After full and complete exploration, there was no signs of septic source that required surgical intervention at this point. We irrigated the peritoneal cavity and suctioned the irrigant out and it was clear. The fascia was closed with #1 Vicryl closely spaced interrupted sutures with the help of the visceral retractor. Once the fascia was closed, the soft tissue was irrigated first with saline and Betadine. Hemostasis was ensured and the skin was closed with sterile skin jm. Dry sterile dressing was placed. Sponges and needle counts were correct x3. The patient tolerated the procedure well and transported to recovery in stable condition. I will call Dr. German with the findings. He will be readmitted to the ICU on antibiotics and further resuscitation with fluids will be carried out. There was no family available at the end of the case to discuss the findings with. Dictated by... Bunny Mishra/cristian TD: 10/06/2016 02:12 JOB #: [id number] OPERATIVE REPORT X Shaun Vora MD PROCEDURE OPERATIVE NOTE
--- NOTE | ~2016-10-02 | CO ---
Unit #: [id number] #: [id number] Patient: ABDIRIZAK SUMMERS [id number] [address] [place], [place] [address] [id number] I MR#: [id number] NAME: ABDIRIZAK SUMMERS ROOM: [facility] Age: 51 Sex: M Admission Date: 10/02/2016 : 1965 Attending Physician: Willa Cox M.D. Consultation Date: 10/03/2016 CONSULTATION REPORT REASON FOR CONSULTATION Possible sepsis. HISTORY OF PRESENT ILLNESS This is a 51-year-old gentleman, who is known to our service from previous admissions, we saw him back in May with sepsis and septic shock. He was admitted again in August for respiratory failure, pneumonia, and acute kidney failure. He has a history of Clostridium difficile. He was admitted now with diarrhea, hypertension, low-grade fever, and leukocytosis. In the ER, he has shown hypotension, for which he is on pressors as well as leukocytosis and diarrhea. He does have some abdominal discomfort, but otherwise he is awake and alert. He was started on vancomycin, Zosyn IV, and oral vancomycin, IV Flagyl, and ID was consulted. Further workup is pending at this time. The patient is clinically stable. In the ER, he is on a low-grade pressors, central line was placed yesterday. He has no dysuria, but does have 3 to 4 loose stools daily with some abdominal discomfort and cramps. He had received IV fluids and is currently on pressors. PAST MEDICAL HISTORY Chronic kidney disease, hypertension, atrial fibrillation, morbid obesity, diabetes, obstructive sleep apnea, hyperlipidemia, chronic kidney disease, and chronic back pain. PAST SURGICAL HISTORY Tonsillectomy and eye surgery. SOCIAL HISTORY He is disabled, lives at home. He drinks beer occasionally. No history of drug use. He quit smoking several years ago. FAMILY HISTORY Unknown. ALLERGIES Codeine. MEDICATIONS Home medications; Mag-Ox, Bumex, Bystolic, iron, Neurontin, Eliquis, Protonix, and Levemir. In the hospital, he is on vancomycin and Zosyn IV and vancomycin oral as well as IV Flagyl. PHYSICAL EXAMINATION GENERAL: Reveals an obese white male, who is unkempt with poor personal Unit #: [id number] #: [id number] Patient: ABDIRIZAK SUMMERS. He is awake and alert and does not appear to be in any distress. VITAL SIGNS: His systolic blood pressure was in 90s when he initially came in, currently it is above 100; respirations are 18; heart rate 110; and temperature is 97. HEENT: Oral hygiene is poor. NECK: Supple. EXTREMITIES: There is bilateral edema and chronic venous stasis and chronic skin discoloration without any signs of cellulitis. LUNGS: Clear to percussion and auscultation. HEART: Heart sounds are normal. ABDOMEN: Grossly obese. Diffusely tender, but there is no rebound or guarding. Bowel sounds are normal. NEUROLOGIC: Nonfocal. A central line placed is fine. I have examined his perineal area very carefully, there is no evidence of any cellulitis or panniculitis. DIAGNOSTIC STUDIES LABORATORY RESULTS: Random cortisol level is 17. White count is 21, hemoglobin 13, platelets 177, neutrophils 81. Lactic acid 1.3. Sodium 128, potassium 3.2, chloride 95, CO2 of 22, BUN 40, creatinine 4.5. AST 17, ALT 8, alkaline phosphatase 74, bilirubin 1.5. Lipase is 10, amylase is 5. Urinalysis is negative for UTI. Procalcitonin is pending. IMAGING STUDIES: Chest x-ray is pending. Abdominal CT shows moderate diffuse wall thickening in the left colon from the splenic flexure to the descending and sigmoid colon and wall thickening of the rectum with pericolonic stranding. There was no bowel obstruction, abscess, free fluid. IMPRESSION I suspect recurrent Clostridium difficile with possible sepsis due to bacterial translocation. Other possibility may include ischemic colitis. RECOMMENDATIONS I agree with IV Zosyn, oral vancomycin, IV Flagyl. We will repeat one dose of vancomycin, pending cultures, check procalcitonin level stat. Further recommendation will follow. Dictated by... Bunny Sal/cristian TD: 10/06/2016 23:22 JOB #: [id number] CONSULTATION REPORT X Loyd Diaz MD X CONSULTATION REPORT
--- NOTE | ~2016-10-02 | CR72 ---
[facility] A Service of [facility] & [facility] RADIOLOGY TEXT RESULTS PATIENT: ABDIRIZAK SUMMERS LOCATION: [address] : [birth year] UNIT #: [id number] AGE: [address]: Willa Cox MD SEX: M ORDER DR: [id number] [place] [id number] [facility]. [place], [place] [address] [id number] I MR#: [id number] Acc #: [id number] NAME: ABDIRIZAK SUMMERS : 1965 SEX: M STUDY DATE/TIME: 10/07/2016 13:17 UNIT: [facility] ROOM: [facility] STUDY DESCRIPTION: CR Chest Single View Portable Attending Physician: Willa Cox M.D. Ordering Physician: Herve Johnson M.D. Primary Care Physician: No Primary Care Physician MEDICAL IMAGING REPORT This report is preliminary unless electronic signature is present EXAM Frontal chest 10/07/2016 INDICATIONS 51-year-old male with a history of Shiley catheter placement. Shortness of air today. TECHNIQUE Frontal chest compared with 04:57 hours same date. PLAN Preexisting central line from a left sided approach is unchanged. There is a new right-sided central line from a neck approach terminating at the mid SVC level. Cardiac silhouette is enlarged but unchanged for technical factors given rotation to the right. There is mild vascular congestion. Bibasilar hazy opacities likely reflect a combination of pleural fluid and compressive atelectasis or less likely basilar infiltrates. No pneumothorax. ET tube tip in good position above the [place]. IMPRESSION 1. New right-sided central line from a neck approach terminates at the mid SVC level. No pneumothorax. 2. Rotated examination demonstrates no other significant interval change from 04:57 hours for technical factors. If not mentioned above the enteric tube tip can be followed to the GE junction but no further due to collimation of the image. Dictated by... Jorge Rose M.D. THIS IS AN ELECTRONICALLY VERIFIED REPORT [facility] A Service of [facility] & [facility] RADIOLOGY TEXT RESULTS PATIENT: ABDIRIZAK SUMMERS LOCATION: [facility]07 : [birth year] UNIT #: [id number] AGE: [address]: Willa Cox MD SEX: M ORDER DR: Jorge Rose M.D. at 10/08/2016 8:11 AM JM/jd TD: 10/07/2016 17:01 JOB #: [id number] MEDICAL IMAGING REPORT COPY
--- NOTE | ~2016-10-02 | CR72 ---
[facility] A Service of [facility] & [facility] RADIOLOGY TEXT RESULTS PATIENT: ABDIRIZAK SUMMERS LOCATION: [address] : [birth year] UNIT #: [id number] AGE: [address]: Willa Cox MD SEX: M ORDER DR: [id number] [facility] [address] [facility]. [place], [place] [address] [id number] I MR#: [id number] Acc #: [id number] NAME: ABDIRIZAK SUMMERS : 1965 SEX: M STUDY DATE/TIME: 10/14/2016 5:33 UNIT: [facility] ROOM: [facility] STUDY DESCRIPTION: CR Chest Single View Portable Attending Physician: Willa Cox M.D. Ordering Physician: Herve Johnson M.D. Primary Care Physician: Primary Care Physician No MEDICAL IMAGING REPORT This report is preliminary unless electronic signature is present EXAM AP portable chest, 10/14/2016 at 05:33 HISTORY Status post tracheostomy placement, respiratory failure, hypertension, sepsis. Symptoms began 10/13/2016. COMPARISON AP portable chest, 10/13/2016 FINDINGS Tracheostomy appliance, left neck approach central line, NG tube, right IJ central line each appears stable in position. No pneumothorax is seen. Layering bilateral pleural effusions with bibasilar infiltrates and/or consolidations, left greater right, and cardiomegaly, without significant change from 1 day prior. Dictated by... Melinda Puente M.D. THIS IS AN ELECTRONICALLY VERIFIED REPORT Melinda Puente M.D. at 10/15/2016 12:12 AM DILSHAD/justin TD: 10/14/2016 12:39 JOB #: [id number] MEDICAL IMAGING REPORT COPY
--- NOTE | ~2016-10-02 | FU ---
[facility] Nutrition Therapy DATE: 10/12/16 Patient: ABDIRIZAK LARSONLYNJORGE Physician: TERESA Address: [address] [facility] Room/Bed: [address], Zip: [place] [address] Admit Date: 10/02/16 Date of : [birth year] Height: 5 9 Weight: 399 181 NUTRITION MONITORING/FOLLOW-UP: Reason: PT SEEN FOR FOLLOW-UP/ENTERAL NUTRITION SUPPORT DX: DIARRHEA AND ABD CRAMPING, ARF Anthropometrics: 5'8", WT: 399# (181 KG), BMI: 60.7 -ADMIT WEIGHT: 375# (170 KG)-PT'S WEIGHTS HAVE INCREASED 2' FLUID RETENTION? Labs: GLU: 168, BUN: 29, CREAT: 1.5, CA+:7.6, ALB: 2.2, AST: 57, NA+:133, GFR: 52.2 Meds: NACL, VERSED, REGLAN, NOVOLOG, FENTANYL, PEPCID, ZOFRAN I&O's: [id number] Skin: HEALING WOUNDS BLE; MID ABD INCISION EDEMA: BILATERAL HANDS/ARMS 2+ PITTING EDEMA; BILATERAL FEET 3+ PITTING EDEMA Estimated Nutrition Needs: [phone] KCAL 105-140 G PRO Assessment: CHART REVIEWED AND EVENTS NOTED. PT SEEN FOR ENTERAL NUTRITION SUPPORT FOLLOW-UP. PT CONTINUES TO BE INTUBATED AND SEDATED AT TIME OF VISIT. ENTERAL NUTRITION OF VITAL HIGH PROTEIN CURRENTLY OFF 2' ?TRACHEOSTOMY PROCEDURE SCHEDULED. PER RN AND CHART, PT TOLERATING ENTERAL NUTRITION SUPPORT, NOTING RESIDUALS ~50-150 ML. NO FAMILY IN ROOM AT THIS TIME. PER CHART, DIAMOND FOLLOWING. PT CURRENTLY RECEIVING CRRT AT TIME OF VISIT. RD TO CONTINUE TO FOLLOW. SEE RECOMMENDATIONS BELOW. Dx: INADEQUATE ORAL INTAKE R/T CURRENT CLINICAL CONDITION AEB PT INTUBATED AND SEDATED, PT NPO X 3 DAYS. RESOLVED/IN PROGRESS NEW Dx: INADEQUATE ORAL INTAKE R/T CURRENT CLINICAL CONDITION AEB PT INTUBATED AND SEDATED, PT RECEIVING ALTERNATIVE NUTRITION SUPPORT (CURRENTLY NPO FOR PROCEDURE). Intervention: 1. ENTERAL NUTRITION ON HOLD Monitoring, Evaluation and Goals: GOALS NOT MET 1. ENTERAL NUTRITION; PROVIDE ~80-100% ESTIMATED NUTRIENT NEEDS 2. LABS; WNL 3. WEIGHTS; PROMOTE GRADUAL WEIGHT LOSS MONITOR: -TF RE-INITIATION [facility] Nutrition Therapy DATE: 10/12/16 Patient: ABDIRIZAK MELINA Physician: TERESA Address: [address] [place] [address] Room/Bed: [address], Zip: [place] [address] Admit Date: 10/02/16 Date of : [birth year] Height: 5 9 Weight: 399 181 -TF RATE/RESIDUALS -WEIGHTS -LABS -EXTUBATION? Recommendations: 1. ONCE MEDICALLY FEASIBLE, RE-START ENTERAL NUTRITION SUPPORT OF VITAL HIGH PROTEIN @ 20 ML/HR, ADVANCE 10 ML q 6 HOURS TO GOAL RATE OF 65 ML/HR -PROVIDES 1560 KCAL, 137 G PRO, 1310 ML FREE H20 ADD FREE H20 FLUSHES PER MD 2' HYPONATREMIA NOTED, PT ON CRRT 2. ONCE PT EXTUBATED, ADVANCE DIET PER HORTICULTURAL SERVICES SUPERVISOR + CC/HH + [address] WILL F/U PER PROTOCOL PT IS MOD/SEVERELY COMPROMISED Respectfully, ROSALVA GONG MS, RD, LD Food and Nutritional Services [facility] cc: client file
--- NOTE | ~2016-10-02 | CO ---
Unit #: [id number] #: [id number] Patient: ABDIRIZAK SUMMERS [id number] [address] [place], [place] [address] [id number] I MR#: [id number] NAME: ABDIRIZAK SUMMERS ROOM: [facility] Age: 51 Sex: M Admission Date: 10/02/2016 : 1965 Attending Physician: Willa Cox M.D. Primary Care Physician: Primary Care Physician No Consultation Date: 10/03/2016 CONSULTATION REPORT REASON FOR CONSULTATION Elevated creatinine level. HISTORY OF PRESENT ILLNESS The patient is a 51-year-old morbidly obese male with known history of hypertension, COPD, atrial fibrillation, type 2 diabetes, hyperlipidemia, who came in with abdominal pain and diarrhea several times with colitis on the CT scan. The patient is hypotensive, currently on pressors. Creatinine on admission noted to be 3.5 with a creatinine of 1.0 in 08/2016. The patient also noted to have hyponatremia with low potassium. His bicarb also noted to be 19. PAST MEDICAL HISTORY Significant for hypertension, atrial fibrillation, type 2 diabetes, morbid obesity, obstructive sleep apnea, hyperlipidemia. PAST SURGICAL HISTORY Significant for tonsillectomy and eye surgery. SOCIAL HISTORY The patient lives at home by himself on disability. He uses a wheelchair, cooks for himself, the neighbor bringing the groceries for him. ALLERGIES Codeine. MEDICATIONS Include Mag oxide, Bumex, Bystolic, Tribenzor, iron, Neurontin, Eliquis 5 mg b.i.d., Protonix, and Levemir 20 units subcutaneously. REVIEW OF SYSTEMS GI: As above. : No hematuria, no dysuria. CVS: No chest pain. PHYSICAL EXAMINATION GENERAL: The patient is awake and alert. Oriented. VITAL SIGNS: Blood pressure is 90 systolic on Levophed. Afebrile. Saturations 93%. HEENT: Head is atraumatic. Extraocular movements are intact. Sclerae are intact. NECK: Supple. CHEST: Clear. Air entry is equal. HEART: S1 and S2 audible. There is no S3, no S4. Unit #: [id number] #: [id number] Patient: ABDIRIZAK SUMMERS ABDOMEN: Soft, distended. EXTREMITIES: Soft edema bilaterally in the lower extremities. BLACKING MACHINE OPERATOR: Grossly intact. DIAGNOSTIC STUDIES LABORATORY RESULTS: Procalcitonin is 1.6. Sodium 124, potassium 3.3, chloride 98, CO2 19, BUN 38, creatinine 3.8, glucose 122, calcium 7.3, magnesium is 1.4. Lactic acid is 1. WBC is 25.2, H and H is 14.4 and 44.8 with a platelet count of 218. IMPRESSION 1. Acute kidney injury, likely prerenal azotemia. At risk of acute tubular necrosis secondary to infection and hypotension. Currently on IV fluids. We will continue with that. Gently and gradually decrease the pressor support. Colitis. Antibiotics per Critical Care. 2. Hyponatremia likely hemodynamic related. Check ADH state. Monitor on the current IV fluids. 3. Hypokalemia, hypomagnesemia being supplemented recheck through the day. 4. Renal function expected to stabilize and improve. 5. Colitis. 6. Hypertension. 7. Diabetes mellitus. 8. Morbid obesity. Dictated by... Myron German M.D. RA/cristian TD: 10/04/2016 00:28 JOB #: [id number] CONSULTATION REPORT X Myron German MD CONSULTATION REPORT
--- NOTE | ~2016-10-02 | CR72 ---
[facility] A Service of [facility] RADIOLOGY TEXT RESULTS PATIENT: ABDIRIZAK SUMMERS LOCATION: [address] : [birth year] UNIT #: [id number] AGE: [address]: Willa Cox MD SEX: M ORDER DR: [id number] [facility] [address] [facility]. [place], [place] [address] [id number] I MR#: [id number] Acc #: [id number] NAME: ABDIRIZAK SUMMERS : 1965 SEX: M STUDY DATE/TIME: 10/12/2016 4:23 UNIT: [facility] ROOM: [facility] STUDY DESCRIPTION: CR Chest Single View Portable Attending Physician: Willa Cox M.D. Ordering Physician: Herve Johnson M.D. Primary Care Physician: No Primary Care Physician MEDICAL IMAGING REPORT This report is preliminary unless electronic signature is present EXAM AP portable chest. DATE 10/12/2016 AT 0423 HISTORY Sepsis, respiratory failure, and hypotension. Symptoms began 10/02/2016. Clostridium difficile colitis. Atrial fibrillation. Diabetes. Kidney disease. Hypertension. COPD. COMPARISON AP portable chest, 10/11/2016. FINDINGS Mediastinum is shifted toward the right or the patient is slightly located toward the right, unchanged from prior study. Heart size is mildly enlarged but stable. There are small layering bilateral pleural effusions with left greater than right basilar atelectasis or infiltrates. ET tube tip lies in the upper thoracic trachea. Left IJ central line projects over left brachiocephalic region. Right IJ central line lies over the right upper SVC level. No visible pneumothorax. IMPRESSION Small layering bilateral pleural effusion with left greater than right basilar atelectasis or infiltrates, without significant change from 10/11/2016. Dictated by... Melinda Puente M.D. [facility] A Service of [facility] & [facility] RADIOLOGY TEXT RESULTS PATIENT: ABDIRIZAK SUMMERS LOCATION: [address] : [birth year] UNIT #: [id number] AGE: [address]: Willa Cox MD SEX: M ORDER DR: THIS IS AN ELECTRONICALLY VERIFIED REPORT Melinda Puente M.D. at 10/13/2016 1:51 AM DILSHAD/keyona TD: 10/12/2016 11:39 JOB #: [id number] MEDICAL IMAGING REPORT COPY
--- NOTE | ~2016-10-02 | CR72 ---
[facility] A Service of [facility] & [facility] RADIOLOGY TEXT RESULTS PATIENT: ABDIRIZAK SUMMERS LOCATION: [address] : [birth year] UNIT #: [id number] AGE: [address]: Willa Cox MD SEX: M ORDER DR: [id number] [facility] [address] [place], [place] [address] [id number] I MR#: [id number] Acc #: [id number] NAME: ABDIRIZAK SUMMERS : 1965 SEX: M STUDY DATE/TIME: 10/17/2016 4:21 UNIT: [facility] ROOM: [facility] STUDY DESCRIPTION: CR Chest Single View Portable Attending Physician: Willa Cox M.D. Ordering Physician: Herve Johnson M.D. Primary Care Physician: Primary Care Physician No MEDICAL IMAGING REPORT This report is preliminary unless electronic signature is present EXAM AP portable chest 10/17/2016 HISTORY 51-year-old male with respiratory failure. Follow up cardiopulmonary status. TECHNIQUE AP portable chest x-ray. FINDINGS Dense opacification of the right lower lobe likely due to a combination of consolidation and/or volume loss and probable small right pleural effusion. This is unchanged since yesterday. Overall low lung volumes. Cardiomegaly is stable. Tracheostomy tube, bilateral IJ vascular catheters and NG tube remain in good position. IMPRESSION Stable portable chest radiograph, unchanged since yesterday. Dictated by... Robbie Nassar M.D. THIS IS AN ELECTRONICALLY VERIFIED REPORT Robbie Nassar M.D. at 10/18/2016 9:56 PM RGW/tiesha TD: 10/18/2016 08:53 JOB #: [id number] MEDICAL IMAGING REPORT [facility] A Service of [facility] & [facility] RADIOLOGY TEXT RESULTS PATIENT: ABDIRIZAK SUMMERS LOCATION: [address] : [birth year] UNIT #: [id number] AGE: [address]: Willa Cox MD SEX: M ORDER DR: COPY
[~2016-10-02 12:40] MED LIST: ACTOS30 MG PO; AMITRIPTYLINE H25 MG PO; AMLODIPINE BESYL5 MG PO; BACTROBAN15 GM TOP; BUMEX1 MG PO; BYSTOLIC20 MG PO; CARDIZEM60 M1 PO; CIPRO PO; COMBIVENT U/D3 M2 INH; COREG PO; COREG6.25 MG PO; COUMADIN5 MG PO; ELIQUIS5 MG PO; FERRO-TIME325 MG PO; FLAGYL PO; FOLIC ACID1 MG PO; GABAPENTIN300 MG PO; GLIPIZIDE10 MG PO; HYDROCODONE-APA1 T54 PO; HYDROXYZINE PAM25 M1 PO; INDOMETHACIN50 MG PO; LEVAQUIN750 M1 PO; LEVEMIR100 U/ML SQ; LEVEMIR100 UNITS/ SUBQ; LOVENOX100 MG/ML SQ; MAGNESIUM400 M1 PO; MILLIPRED DP5 M1 PO; NORCO 10/325 TA1 TAB PO; NORCO 10/3251 TAB PO; NOVOLOG100 U/M1 SUBQ; OSENI 12.5-151 EACH; PERIDEX480 ML PO; PROTONIX PO; TEMOVATE 0.05%15 GM EXT; TRIBENZOR 40-51 EAC1 PO; TRIBENZOR 40-51 EACH PO; TYLENOL325 M1 PO; ULTRAM PO; [UNRECOGNIZED DRUG - OTHER] PO
[2016-10-02 13:12] LABS: BASOPHIL% 0.2 % (0-2.5); EOSINOPHIL# 0.2 X10e3 (0-0.7); EOSINOPHIL% 0.9 % (0.0-7.0); HEMOGLOBIN 13.5 gm/dL (13.0-16.0); LYMPHOCYTE# 1.8 X10e3 (1.0-3.5); LYMPHOCYTE% 8.3 % (17.0-45.0); MEAN CELL VOLUME 83.1 FL (83-96); MEAN CORPUSCULAR HEMOGLOBIN 26.7 PG (28-34); MEAN CORPUSCULAR HGB CONC 32.1 g/dL (30-36); MONOCYTE# 1.9 X10e3 (0-1.0); MONOCYTE% 8.9 % (3.0-12.0); NEUTROPHIL# 17.5 X10e3 (1.5-7.1); NEUTROPHIL% 81.7 % (40-75); PLATELET COUNT 177 X10e3 (140-420); RED BLOOD COUNT 5.05 X10e (3.90-5.60); RED CELL DISTRIBUTION WIDTH 16.5 % (11.0-15.5); WHITE BLOOD COUNT 21.4 X10e3 (4.0-10.5)
[2016-10-02 13:13] LABS: DIFF IND YES
[2016-10-02 13:36] LABS: PLATELET ESTIMATE NORMAL (NORMAL); RBC NORMAL YES
[2016-10-02 14:57] LABS: ARTERIAL BLOOD GAS HCO3 20.3 mmol/L; ARTERIAL BLOOD GAS MET HB 0.9 %sat (0.0-2.0); ARTERIAL BLOOD GAS PCO2 40.1 mmHg (35.0-45.0); ARTERIAL BLOOD GAS pH 7.313 (7.350-7.450)
[2016-10-02 14:58] LABS: ARTERIAL BLOOD GAS ALLEN TEST NORMAL; ARTERIAL BLOOD GAS ART SITE LEFT RADIAL; ARTERIAL BLOOD GAS PO2 69.4 mmHg (80.0-100); ARTERIAL DRAW? YES
[2016-10-02 16:16] LABS: ALBUMIN SERUM 1.9 g/dL (3.5-5.0); ALKALINE PHOSPHATASE 74 U/L (32-92); ALT (SGPT) 8 U/L (10-40); AST (SGOT) 17 U/L (10-42); BILIRUBIN, DIRECT 0.8 mg/dL (0.0-0.2); BILIRUBIN,INDIRECT 0.7 mg/dL (0.0-0.9); BILIRUBIN,TOTAL 1.5 mg/dL (0.2-2.0); BLOOD UREA NITROGEN 40 mg/dL (9-23); BUN/CREATININE RATIO 8.88; CALCIUM SERUM 7.2 mg/dL (8.4-10.2); CARBON DIOXIDE 22 mmol/L (22-31); CHLORIDE 95 mmol/L (100-111); CREATININE SERUM 4.5 mg/dL (0.6-1.4); GLOM FILT RATE Estimated 14.7 mL/min (>60); GLUCOSE FASTING 83 mg/dL (70-110); POTASSIUM 3.2 mmol/L (3.5-5.1); PROTEIN TOTAL SERUM 5.5 g/dL (6.0-8.3); SODIUM 128 mmol/L (135-145)
[2016-10-02 16:19] LABS: AMYLASE 5 U/L (0-46); LIPASE <10 U/L (22-51)
[2016-10-02] MEDS ORDERED: BUMEX2 MG PO (17:54)
[2016-10-02] MEDS ORDERED: BYSTOLIC20 MG PO (17:54)
[2016-10-02] MEDS ORDERED: TRIBENZOR 40-51 EACH PO (17:54)
[2016-10-02] MEDS ORDERED: MAGOX 400400 MG PO (17:54)
[2016-10-02] MEDS ORDERED: IRON325 ( 652 PO (17:55)
[2016-10-02] MEDS ORDERED: ELIQUIS5 MG PO (17:55)
[2016-10-02] MEDS ORDERED: NEURONTIN300 MG PO (17:55)
[2016-10-02] MEDS ORDERED: LEVEMIR FL100 UNIT/1 SUBQ (17:56)
[2016-10-02] MEDS ORDERED: PROTONIX PO (17:56)
[2016-10-02 20:37] LABS: URINE SOURCE CLEAN CATCH
[2016-10-02 20:47] LABS: URINE APPEARANCE CLOUDY; URINE BLOOD NEG (NEG); URINE COLOR DK YELLOW; URINE GLUCOSE NEG (NEG); URINE KETONE TRACE (NEG); URINE LEUKOCYTE ESTERASE 1+ (NEG); URINE NITRATE NEG (NEG); URINE PROTEIN NEG (NEG); URINE SPECIFIC GRAVITY 1.021 (1.003-1.035)
[2016-10-02 20:49] LABS: URINE BACTERIA AUWI NEG (NEGATIVE); URINE SQUAMOUS EPITHELIAL CELL OCC /[HPF]
[2016-10-02 20:50] LABS: CULTURE INDICATED? NO; U HYALINE CASTS AUWI 0-2 /[LPF]; URINE BILIRUBIN NEG (NEG)
[2016-10-03 05:05] LABS: BASOPHIL# 0.1 X10e3 (0-0.3); BASOPHIL% 0.4 % (0-2.5); DIFF IND NO; EOSINOPHIL# 0.3 X10e3 (0-0.7); EOSINOPHIL% 1.2 % (0.0-7.0); HEMATOCRIT 44.8 % (38.0-50.0); HEMOGLOBIN 14.4 gm/dL (13.0-16.0); LYMPHOCYTE% 3.9 % (17.0-45.0); MEAN CELL VOLUME 83.5 FL (83-96); MEAN CORPUSCULAR HEMOGLOBIN 26.8 PG (28-34); MEAN CORPUSCULAR HGB CONC 32.1 g/dL (30-36); MEAN PLATELET VOLUME 8.5 FL (6.5-11.5); MONOCYTE# 2.5 X10e3 (0-1.0); MONOCYTE% 9.8 % (3.0-12.0); NEUTROPHIL# 21.3 X10e3 (1.5-7.1); NEUTROPHIL% 84.7 % (40-75); PLATELET COUNT 218 X10e3 (140-420); RED BLOOD COUNT 5.37 X10e (3.90-5.60); RED CELL DISTRIBUTION WIDTH 16.6 % (11.0-15.5); WHITE BLOOD COUNT 25.2 X10e3 (4.0-10.5)
[2016-10-03 05:34] LABS: ALBUMIN SERUM 1.9 g/dL (3.5-5.0); CALCIUM SERUM 7.3 mg/dL (8.4-10.2); CREATININE SERUM 3.8 mg/dL (0.6-1.4); GLOM FILT RATE Estimated 17.9 mL/min (>60); MAGNESIUM 1.4 mg/dL (1.6-3.0); POTASSIUM 3.3 mmol/L (3.5-5.1); PROTEIN TOTAL SERUM 5.9 g/dL (6.0-8.3)
[2016-10-03 15:05] LABS: CREATININE,RANDOM URINE 73 mg/dL; SODIUM URINE RANDOM 48 mmol/L
[2016-10-03 15:07] LABS: OSMOLALITY,URINE 272 mOsmo/kg (250-900)
[2016-10-03 15:09] LABS: URIC ACID 10.9 mg/dL (2.6-7.2)
[2016-10-03 15:12] LABS: BUN/CREATININE RATIO 13.46; CALCIUM SERUM 7.5 mg/dL (8.4-10.2); CREATININE SERUM 2.6 mg/dL (0.6-1.4); GLOM FILT RATE Estimated 27.7 mL/min (>60); POTASSIUM 4.3 mmol/L (3.5-5.1)
[2016-10-04 05:00] LABS: BASOPHIL% 0.4 % (0-2.5); EOSINOPHIL# 0.3 X10e3 (0-0.7); EOSINOPHIL% 2.3 % (0.0-7.0); HEMATOCRIT 41.5 % (38.0-50.0); HEMOGLOBIN 13.3 gm/dL (13.0-16.0); LYMPHOCYTE# 0.9 X10e3 (1.0-3.5); LYMPHOCYTE% 7.1 % (17.0-45.0); MEAN CELL VOLUME 81.9 FL (83-96); MEAN CORPUSCULAR HEMOGLOBIN 26.3 PG (28-34); MEAN PLATELET VOLUME 8.2 FL (6.5-11.5); MONOCYTE# 1.5 X10e3 (0-1.0); MONOCYTE% 11.8 % (3.0-12.0); NEUTROPHIL# 10.3 X10e3 (1.5-7.1); NEUTROPHIL% 78.4 % (40-75); PLATELET COUNT 171 X10e3 (140-420); RED BLOOD COUNT 5.06 X10e (3.90-5.60); RED CELL DISTRIBUTION WIDTH 16.2 % (11.0-15.5); WHITE BLOOD COUNT 13.1 X10e3 (4.0-10.5)
[2016-10-04 05:23] LABS: DIFF IND NO
[2016-10-04 05:29] LABS: ALBUMIN SERUM 1.5 g/dL (3.5-5.0); BILIRUBIN,TOTAL 1.7 mg/dL (0.2-2.0); BUN/CREATININE RATIO 15.9; CALCIUM SERUM 7.4 mg/dL (8.4-10.2); CREATININE SERUM 2.2 mg/dL (0.6-1.4); GLOM FILT RATE Estimated 33.6 mL/min (>60); MAGNESIUM 1.8 mg/dL (1.6-3.0); POTASSIUM 3.7 mmol/L (3.5-5.1); PROTEIN TOTAL SERUM 4.8 g/dL (6.0-8.3)
[2016-10-04 14:36] LABS: CK TOTAL 8 IU/L (36-174)
[2016-10-05 06:08] LABS: BASOPHIL# 0.1 X10e3 (0-0.3); BASOPHIL% 0.4 % (0-2.5); EOSINOPHIL# 0.1 X10e3 (0-0.7); EOSINOPHIL% 0.5 % (0.0-7.0); HEMATOCRIT 46.8 % (38.0-50.0); HEMOGLOBIN 15.2 gm/dL (13.0-16.0); LYMPHOCYTE# 1.2 X10e3 (1.0-3.5); LYMPHOCYTE% 9.9 % (17.0-45.0); MEAN CELL VOLUME 83.1 FL (83-96); MEAN CORPUSCULAR HEMOGLOBIN 26.9 PG (28-34); MEAN CORPUSCULAR HGB CONC 32.4 g/dL (30-36); MEAN PLATELET VOLUME 8.9 FL (6.5-11.5); MONOCYTE# 2.5 X10e3 (0-1.0); MONOCYTE% 20.9 % (3.0-12.0); NEUTROPHIL# 8.3 X10e3 (1.5-7.1); NEUTROPHIL% 68.3 % (40-75); PLATELET COUNT 224 X10e3 (140-420); RED BLOOD COUNT 5.64 X10e (3.90-5.60); RED CELL DISTRIBUTION WIDTH 16.8 % (11.0-15.5); WHITE BLOOD COUNT 12.2 X10e3 (4.0-10.5)
[2016-10-05 06:11] LABS: DIFF IND YES
[2016-10-05 06:47] LABS: PLATELET ESTIMATE NORMAL (NORMAL)
[2016-10-05 06:51] LABS: ALBUMIN SERUM 1.7 g/dL (3.5-5.0); BILIRUBIN,TOTAL 1.8 mg/dL (0.2-2.0); BUN/CREATININE RATIO 17.77; CALCIUM SERUM 7.4 mg/dL (8.4-10.2); CREATININE SERUM 1.8 mg/dL (0.6-1.4); GLOM FILT RATE Estimated 42.3 mL/min (>60); MAGNESIUM 2.2 mg/dL (1.6-3.0); PHOSPHOROUS 2.8 mg/dL (2.5-4.6); POTASSIUM 4.4 mmol/L (3.5-5.1); PROTEIN TOTAL SERUM 5.5 g/dL (6.0-8.3)
[2016-10-05 08:05] LABS: ARTERIAL BLD GAS O2 SATURATION 91.6 % (90.0-100.0); ARTERIAL BLOOD GAS ALLEN TEST NORMAL; ARTERIAL BLOOD GAS ART SITE ARTERIAL LINE; ARTERIAL BLOOD GAS CARBOXY HB 0.3 %sat (0.0-9.0); ARTERIAL BLOOD GAS DELIVERY NASAL CANNULA; ARTERIAL BLOOD GAS HCO3 20.3 mmol/L; ARTERIAL BLOOD GAS MET HB 0.6 %sat (0.0-2.0); ARTERIAL BLOOD GAS PCO2 34.7 mmHg (35.0-45.0); ARTERIAL BLOOD GAS PO2 65.4 mmHg (80.0-100); ARTERIAL BLOOD GAS pH 7.374 (7.350-7.450); ARTERIAL DRAW? YES
[2016-10-05 09:36] LABS: INR 1.7
[2016-10-05 09:47] LABS: PROTHROMBIN TIME (PATIENT) 18.3 SECONDS (9.6-11.5)
[2016-10-05 13:58] LABS: ARTERIAL BLD GAS O2 SATURATION 93.4 % (90.0-100.0); ARTERIAL BLOOD GAS CARBOXY HB 0.6 %sat (0.0-9.0); ARTERIAL BLOOD GAS HCO3 20.6 mmol/L; ARTERIAL BLOOD GAS MET HB 1.1 %sat (0.0-2.0); ARTERIAL BLOOD GAS PCO2 47.5 mmHg (35.0-45.0); ARTERIAL BLOOD GAS PO2 84.3 mmHg (80.0-100); ARTERIAL BLOOD GAS pH 7.245 (7.350-7.450)
[2016-10-05 13:59] LABS: ARTERIAL BLOOD GAS ART SITE ARTERIAL LINE; ARTERIAL BLOOD GAS VENT MODE A/C; ARTERIAL DRAW? YES
[2016-10-05 18:34] LABS: BASOPHIL# 0.1 X10e3 (0-0.3); BASOPHIL% 0.5 % (0-2.5); EOSINOPHIL% 0.2 % (0.0-7.0); HEMATOCRIT 43.9 % (38.0-50.0); HEMOGLOBIN 14.3 gm/dL (13.0-16.0); LYMPHOCYTE# 1.3 X10e3 (1.0-3.5); LYMPHOCYTE% 9.8 % (17.0-45.0); MEAN CELL VOLUME 82.8 FL (83-96); MEAN CORPUSCULAR HEMOGLOBIN 26.9 PG (28-34); MEAN CORPUSCULAR HGB CONC 32.5 g/dL (30-36); MEAN PLATELET VOLUME 8.5 FL (6.5-11.5); MONOCYTE# 1.6 X10e3 (0-1.0); MONOCYTE% 11.7 % (3.0-12.0); NEUTROPHIL# 10.7 X10e3 (1.5-7.1); NEUTROPHIL% 77.8 % (40-75); PLATELET COUNT 221 X10e3 (140-420); RED CELL DISTRIBUTION WIDTH 16.5 % (11.0-15.5); WHITE BLOOD COUNT 13.7 X10e3 (4.0-10.5)
[2016-10-05 18:36] LABS: DIFF IND NO
[2016-10-06 05:13] LABS: ARTERIAL BLD GAS O2 SATURATION 96.6 % (90.0-100.0); ARTERIAL BLOOD GAS CARBOXY HB 0.2 %sat (0.0-9.0); ARTERIAL BLOOD GAS HCO3 22.5 mmol/L; ARTERIAL BLOOD GAS MET HB 0.5 %sat (0.0-2.0); ARTERIAL BLOOD GAS PCO2 39.3 mmHg (35.0-45.0); ARTERIAL BLOOD GAS PO2 95.9 mmHg (80.0-100); ARTERIAL BLOOD GAS pH 7.365 (7.350-7.450)
[2016-10-06 05:22] LABS: ARTERIAL BLOOD GAS ART SITE ARTERIAL LINE; ARTERIAL BLOOD GAS VENT MODE AC
[2016-10-06 06:26] LABS: BASOPHIL# 0.1 X10e3 (0-0.3); BASOPHIL% 0.4 % (0-2.5); EOSINOPHIL# 0.1 X10e3 (0-0.7); EOSINOPHIL% 0.9 % (0.0-7.0); HEMATOCRIT 44.9 % (38.0-50.0); HEMOGLOBIN 14.3 gm/dL (13.0-16.0); LYMPHOCYTE# 1.4 X10e3 (1.0-3.5); MEAN CELL VOLUME 82.7 FL (83-96); MEAN CORPUSCULAR HEMOGLOBIN 26.4 PG (28-34); MEAN PLATELET VOLUME 8.3 FL (6.5-11.5); MONOCYTE# 1.7 X10e3 (0-1.0); MONOCYTE% 14.8 % (3.0-12.0); NEUTROPHIL# 8.4 X10e3 (1.5-7.1); NEUTROPHIL% 71.9 % (40-75); PLATELET COUNT 238 X10e3 (140-420); RED BLOOD COUNT 5.43 X10e (3.90-5.60); RED CELL DISTRIBUTION WIDTH 16.4 % (11.0-15.5); WHITE BLOOD COUNT 11.7 X10e3 (4.0-10.5)
[2016-10-06 06:32] LABS: DIFF IND NO
[2016-10-06 07:35] LABS: ALBUMIN SERUM 1.2 g/dL (3.5-5.0); ALKALINE PHOSPHATASE 119 U/L (32-92); ALT (SGPT) 13 U/L (10-40); AST (SGOT) 31 U/L (10-42); BILIRUBIN,TOTAL 2.6 mg/dL (0.2-2.0); BLOOD UREA NITROGEN 26 mg/dL (9-23); BUN/CREATININE RATIO 18.57; CALCIUM SERUM 7.1 mg/dL (8.4-10.2); CARBON DIOXIDE 20 mmol/L (22-31); CHLORIDE 100 mmol/L (100-111); CREATININE SERUM 1.4 mg/dL (0.6-1.4); GLOM FILT RATE Estimated 56.6 mL/min (>60); GLUCOSE FASTING 169 mg/dL (70-110); MAGNESIUM 1.8 mg/dL (1.6-3.0); PHOSPHOROUS 2.2 mg/dL (2.5-4.6); PREALBUMIN <2.0 mg/dL (17.0-42.0); PROTEIN TOTAL SERUM 4.2 g/dL (6.0-8.3); SODIUM 131 mmol/L (135-145); TRIGLYCERIDES 154 mg/dL (10-160)
[2016-10-06 12:40] LABS: INR 1.9; PARTIAL THROMBOPLASTIN TIME 69.3 SECONDS (23.5-31.3); PROTHROMBIN TIME (PATIENT) 20.9 SECONDS (9.6-11.5)
[2016-10-06 15:40] LABS: ARTERIAL BLD GAS O2 SATURATION 96.2 % (90.0-100.0); ARTERIAL BLOOD GAS CARBOXY HB 0.1 %sat (0.0-9.0); ARTERIAL BLOOD GAS HCO3 19.6 mmol/L; ARTERIAL BLOOD GAS MET HB 0.6 %sat (0.0-2.0); ARTERIAL BLOOD GAS PCO2 36.4 mmHg (35.0-45.0); ARTERIAL BLOOD GAS PO2 93.5 mmHg (80.0-100); ARTERIAL BLOOD GAS pH 7.339 (7.350-7.450)
[2016-10-06 15:41] LABS: ARTERIAL BLOOD GAS ART SITE ARTERIAL LINE; ARTERIAL BLOOD GAS DELIVERY VENT; ARTERIAL BLOOD GAS VENT MODE AC
[2016-10-06 16:13] LABS: BUN/CREATININE RATIO 26.52; CALCIUM SERUM 8.8 mg/dL (8.4-10.2); CREATININE SERUM 2.3 mg/dL (0.6-1.4); GLOM FILT RATE Estimated 31.9 mL/min (>60); POTASSIUM 4.4 mmol/L (3.5-5.1)
[2016-10-07 04:54] LABS: BASOPHIL% 0.2 % (0-2.5); EOSINOPHIL# 0.2 X10e3 (0-0.7); EOSINOPHIL% 0.9 % (0.0-7.0); HEMATOCRIT 44.9 % (38.0-50.0); HEMOGLOBIN 14.4 gm/dL (13.0-16.0); LYMPHOCYTE# 0.8 X10e3 (1.0-3.5); LYMPHOCYTE% 4.3 % (17.0-45.0); MEAN CELL VOLUME 84.5 FL (83-96); MEAN CORPUSCULAR HEMOGLOBIN 27.2 PG (28-34); MEAN CORPUSCULAR HGB CONC 32.2 g/dL (30-36); MEAN PLATELET VOLUME 8.6 FL (6.5-11.5); MONOCYTE# 1.6 X10e3 (0-1.0); NEUTROPHIL# 15.5 X10e3 (1.5-7.1); NEUTROPHIL% 85.6 % (40-75); PLATELET COUNT 211 X10e3 (140-420); RED BLOOD COUNT 5.31 X10e (3.90-5.60); RED CELL DISTRIBUTION WIDTH 16.6 % (11.0-15.5)
[2016-10-07 04:55] LABS: DIFF IND YES; WHITE BLOOD COUNT 18.1 X10e3 (4.0-10.5)
[2016-10-07 05:15] LABS: ANISOCYTOSIS SL; PLATELET ESTIMATE DECREASED (NORMAL)
[2016-10-07 05:36] LABS: ARTERIAL BLOOD GAS CARBOXY HB 0.2 %sat (0.0-9.0); ARTERIAL BLOOD GAS MET HB 0.7 %sat (0.0-2.0); ARTERIAL BLOOD GAS PCO2 36.9 mmHg (35.0-45.0); ARTERIAL BLOOD GAS PO2 99.1 mmHg (80.0-100); ARTERIAL BLOOD GAS pH 7.246 (7.350-7.450)
[2016-10-07 05:48] LABS: ARTERIAL BLOOD GAS ART SITE ARTERIAL LINE; ARTERIAL BLOOD GAS VENT MODE AC; ARTERIAL DRAW? NO
[2016-10-07 08:13] LABS: POTASSIUM 3.3 mmol/L (3.5-5.1)
[2016-10-07 08:15] LABS: ALBUMIN SERUM 1.3 g/dL (3.5-5.0); BILIRUBIN,TOTAL 4.4 mg/dL (0.2-2.0); BUN/CREATININE RATIO 19.28; CREATININE SERUM 1.4 mg/dL (0.6-1.4); GLOM FILT RATE Estimated 56.6 mL/min (>60); MAGNESIUM 1.8 mg/dL (1.6-3.0); PHOSPHOROUS 2.9 mg/dL (2.5-4.6); PROTEIN TOTAL SERUM 4.8 g/dL (6.0-8.3)
[2016-10-07 08:17] LABS: CALCIUM SERUM 6.6 mg/dL (8.4-10.2)
[2016-10-07 11:02] LABS: ARTERIAL BLD GAS O2 SATURATION 95.1 % (90.0-100.0); ARTERIAL BLOOD GAS CARBOXY HB 0.2 %sat (0.0-9.0); ARTERIAL BLOOD GAS HCO3 21.2 mmol/L; ARTERIAL BLOOD GAS MET HB 0.6 %sat (0.0-2.0); ARTERIAL BLOOD GAS PCO2 39.6 mmHg (35.0-45.0); ARTERIAL BLOOD GAS PO2 83.1 mmHg (80.0-100); ARTERIAL BLOOD GAS pH 7.336 (7.350-7.450)
[2016-10-07 11:03] LABS: ARTERIAL BLOOD GAS ART SITE ARTERIAL LINE; ARTERIAL BLOOD GAS DELIVERY VENT; ARTERIAL BLOOD GAS VENT MODE AC; ARTERIAL DRAW? YES
[2016-10-07 13:13] LABS: CALCIUM SERUM 6.7 mg/dL (8.4-10.2); CREATININE SERUM 1.4 mg/dL (0.6-1.4); GLOM FILT RATE Estimated 56.6 mL/min (>60); POTASSIUM 3.5 mmol/L (3.5-5.1)
[2016-10-07 14:56] LABS: BUN/CREATININE RATIO 19.28; CALCIUM SERUM 6.8 mg/dL (8.4-10.2); CREATININE SERUM 1.4 mg/dL (0.6-1.4); GLOM FILT RATE Estimated 56.6 mL/min (>60); POTASSIUM 3.9 mmol/L (3.5-5.1)
[2016-10-07 17:46] LABS: BLOOD UREA NITROGEN 27 mg/dL (9-23); CALCIUM SERUM 6.8 mg/dL (8.4-10.2); CARBON DIOXIDE 20 mmol/L (22-31); CHLORIDE 99 mmol/L (100-111); CREATININE SERUM 1.2 mg/dL (0.6-1.4); GLOM FILT RATE Estimated ABOVE60 mL/min (>60); GLUCOSE FASTING 182 mg/dL (70-110)
[2016-10-07 17:49] LABS: SODIUM 123 mmol/L (135-145)
[2016-10-07 19:09] LABS: ARTERIAL BLD GAS O2 SATURATION 97.9 % (90.0-100.0); ARTERIAL BLOOD GAS ART SITE RIGHT BRACHIAL; ARTERIAL BLOOD GAS DELIVERY VENT; ARTERIAL BLOOD GAS HCO3 20.5 mmol/L; ARTERIAL BLOOD GAS VENT MODE AC; ARTERIAL BLOOD GAS pH 7.352 (7.350-7.450); ARTERIAL DRAW? YES
[2016-10-08 03:55] LABS: ARTERIAL BLD GAS O2 SATURATION 97.4 % (90.0-100.0); ARTERIAL BLOOD GAS CARBOXY HB 0.3 %sat (0.0-9.0); ARTERIAL BLOOD GAS HCO3 21.9 mmol/L; ARTERIAL BLOOD GAS MET HB 0.8 %sat (0.0-2.0); ARTERIAL BLOOD GAS pH 7.381 (7.350-7.450)
[2016-10-08 04:09] LABS: ARTERIAL BLOOD GAS ART SITE RIGHT BRACHIAL; ARTERIAL BLOOD GAS DELIVERY VENT; ARTERIAL BLOOD GAS VENT MODE AC; ARTERIAL DRAW? YES; BASOPHIL# 0.1 X10e3 (0-0.3); BASOPHIL% 0.4 % (0-2.5); EOSINOPHIL# 0.3 X10e3 (0-0.7); EOSINOPHIL% 1.7 % (0.0-7.0); HEMATOCRIT 45.7 % (38.0-50.0); HEMOGLOBIN 14.9 gm/dL (13.0-16.0); LYMPHOCYTE% 5.3 % (17.0-45.0); MEAN CORPUSCULAR HGB CONC 32.5 g/dL (30-36); MEAN PLATELET VOLUME 8.6 FL (6.5-11.5); MONOCYTE# 1.4 X10e3 (0-1.0); MONOCYTE% 7.6 % (3.0-12.0); NEUTROPHIL# 15.8 X10e3 (1.5-7.1); PLATELET COUNT 221 X10e3 (140-420); RED BLOOD COUNT 5.51 X10e (3.90-5.60); RED CELL DISTRIBUTION WIDTH 16.5 % (11.0-15.5); WHITE BLOOD COUNT 18.6 X10e3 (4.0-10.5)
[2016-10-08 04:10] LABS: DIFF IND NO
[2016-10-08 04:13] LABS: INR 2.2; PROTHROMBIN TIME (PATIENT) 23.8 SECONDS (9.6-11.5)
[2016-10-08 04:36] LABS: ALBUMIN SERUM 1.2 g/dL (3.5-5.0); ALKALINE PHOSPHATASE 115 U/L (32-92); ALT (SGPT) 21 U/L (10-40); AST (SGOT) 62 U/L (10-42); BILIRUBIN,TOTAL 3.5 mg/dL (0.2-2.0); BLOOD UREA NITROGEN 26 mg/dL (9-23); BUN/CREATININE RATIO 21.66; CALCIUM SERUM 6.8 mg/dL (8.4-10.2); CARBON DIOXIDE 22 mmol/L (22-31); CHLORIDE 93 mmol/L (100-111); CREATININE SERUM 1.2 mg/dL (0.6-1.4); GLOM FILT RATE Estimated ABOVE60 mL/min (>60); GLUCOSE FASTING 154 mg/dL (70-110); PROTEIN TOTAL SERUM 4.5 g/dL (6.0-8.3)
[2016-10-08 04:43] LABS: SODIUM 124 mmol/L (135-145)
[2016-10-08 18:04] LABS: BLOOD UREA NITROGEN 28 mg/dL (9-23); BUN/CREATININE RATIO 21.53; CALCIUM SERUM 6.6 mg/dL (8.4-10.2); CARBON DIOXIDE 25 mmol/L (22-31); CHLORIDE 97 mmol/L (100-111); CREATININE SERUM 1.3 mg/dL (0.6-1.4); GLOM FILT RATE Estimated ABOVE60 mL/min (>60); GLUCOSE FASTING 167 mg/dL (70-110); SODIUM 126 mmol/L (135-145)
[2016-10-09 04:14] LABS: ARTERIAL BLD GAS O2 SATURATION 94.8 % (90.0-100.0); ARTERIAL BLOOD GAS CARBOXY HB 0.3 %sat (0.0-9.0); ARTERIAL BLOOD GAS HCO3 27.5 mmol/L; ARTERIAL BLOOD GAS MET HB 0.8 %sat (0.0-2.0); ARTERIAL BLOOD GAS PCO2 40.1 mmHg (35.0-45.0); ARTERIAL BLOOD GAS PO2 80.7 mmHg (80.0-100); ARTERIAL BLOOD GAS pH 7.445 (7.350-7.450)
[2016-10-09 04:19] LABS: ARTERIAL BLOOD GAS ART SITE RIGHT BRACHIAL; ARTERIAL BLOOD GAS DELIVERY VENT; ARTERIAL BLOOD GAS VENT MODE AC; ARTERIAL DRAW? YES
[2016-10-09 04:32] LABS: BASOPHIL% 0.2 % (0-2.5); EOSINOPHIL# 0.3 X10e3 (0-0.7); EOSINOPHIL% 2.1 % (0.0-7.0); HEMATOCRIT 38.8 % (38.0-50.0); LYMPHOCYTE# 1.2 X10e3 (1.0-3.5); LYMPHOCYTE% 7.1 % (17.0-45.0); MEAN CELL VOLUME 81.8 FL (83-96); MEAN CORPUSCULAR HEMOGLOBIN 26.6 PG (28-34); MEAN CORPUSCULAR HGB CONC 32.5 g/dL (30-36); MEAN PLATELET VOLUME 8.5 FL (6.5-11.5); MONOCYTE# 1.4 X10e3 (0-1.0); MONOCYTE% 8.7 % (3.0-12.0); NEUTROPHIL# 13.5 X10e3 (1.5-7.1); NEUTROPHIL% 81.9 % (40-75); PLATELET COUNT 222 X10e3 (140-420); RED BLOOD COUNT 4.74 X10e (3.90-5.60); RED CELL DISTRIBUTION WIDTH 16.3 % (11.0-15.5); WHITE BLOOD COUNT 16.5 X10e3 (4.0-10.5)
[2016-10-09 04:34] LABS: HEMOGLOBIN 12.6 gm/dL (13.0-16.0)
[2016-10-09 04:35] LABS: DIFF IND NO
[2016-10-09 05:29] LABS: INR 1.7; PARTIAL THROMBOPLASTIN TIME 60.2 SECONDS (23.5-31.3); PROTHROMBIN TIME (PATIENT) 18.4 SECONDS (9.6-11.5)
[2016-10-09 06:35] LABS: ALBUMIN SERUM 1.1 g/dL (3.5-5.0); ALKALINE PHOSPHATASE 110 U/L (32-92); ALT (SGPT) 21 U/L (10-40); AST (SGOT) 64 U/L (10-42); BILIRUBIN,TOTAL 3.5 mg/dL (0.2-2.0); BLOOD UREA NITROGEN 30 mg/dL (9-23); CALCIUM SERUM 6.8 mg/dL (8.4-10.2); CARBON DIOXIDE 26 mmol/L (22-31); CHLORIDE 94 mmol/L (100-111); CREATININE SERUM 1.2 mg/dL (0.6-1.4); GLOM FILT RATE Estimated ABOVE60 mL/min (>60); GLUCOSE FASTING 137 mg/dL (70-110); MAGNESIUM 1.8 mg/dL (1.6-3.0); PHOSPHOROUS 2.6 mg/dL (2.5-4.6); POTASSIUM 4.3 mmol/L (3.5-5.1); PROTEIN TOTAL SERUM 3.8 g/dL (6.0-8.3); SODIUM 130 mmol/L (135-145)
[2016-10-09 14:32] LABS: BODY FLUID APPEARANCE TURBID; BODY FLUID SOURCE BRONCHIAL LAVAGE
[2016-10-10 04:11] LABS: ARTERIAL BLD GAS O2 SATURATION 97.3 % (90.0-100.0); ARTERIAL BLOOD GAS HCO3 28.4 mmol/L; ARTERIAL BLOOD GAS MET HB 0.9 %sat (0.0-2.0); ARTERIAL BLOOD GAS PCO2 42.6 mmHg (35.0-45.0); ARTERIAL BLOOD GAS pH 7.432 (7.350-7.450)
[2016-10-10 04:18] LABS: ARTERIAL BLOOD GAS ART SITE RIGHT BRACHIAL; ARTERIAL BLOOD GAS DELIVERY VENT; ARTERIAL BLOOD GAS VENT MODE AC; ARTERIAL DRAW? YES
[2016-10-10 05:09] LABS: BASOPHIL% 0.5 % (0-2.5); EOSINOPHIL# 0.3 X10e3 (0-0.7); EOSINOPHIL% 3.3 % (0.0-7.0); HEMATOCRIT 33.5 % (38.0-50.0); HEMOGLOBIN 11.2 gm/dL (13.0-16.0); LYMPHOCYTE# 0.8 X10e3 (1.0-3.5); LYMPHOCYTE% 8.2 % (17.0-45.0); MEAN CELL VOLUME 81.8 FL (83-96); MEAN CORPUSCULAR HEMOGLOBIN 27.3 PG (28-34); MEAN CORPUSCULAR HGB CONC 33.3 g/dL (30-36); MEAN PLATELET VOLUME 7.9 FL (6.5-11.5); MONOCYTE# 0.7 X10e3 (0-1.0); MONOCYTE% 7.7 % (3.0-12.0); NEUTROPHIL# 7.5 X10e3 (1.5-7.1); NEUTROPHIL% 80.3 % (40-75); PLATELET COUNT 114 X10e3 (140-420); RED BLOOD COUNT 4.09 X10e (3.90-5.60); RED CELL DISTRIBUTION WIDTH 16.1 % (11.0-15.5); WHITE BLOOD COUNT 9.3 X10e3 (4.0-10.5)
[2016-10-10 05:26] LABS: DIFF IND NO
[2016-10-10 05:53] LABS: ALBUMIN SERUM 2.3 g/dL (3.5-5.0); ALKALINE PHOSPHATASE 96 U/L (32-92); ALT (SGPT) 17 U/L (10-40); AST (SGOT) 46 U/L (10-42); BILIRUBIN,TOTAL 4.3 mg/dL (0.2-2.0); BLOOD UREA NITROGEN 30 mg/dL (9-23); BUN/CREATININE RATIO 23.07; CALCIUM SERUM 7.4 mg/dL (8.4-10.2); CARBON DIOXIDE 27 mmol/L (22-31); CHLORIDE 95 mmol/L (100-111); CREATININE SERUM 1.3 mg/dL (0.6-1.4); GLOM FILT RATE Estimated ABOVE60 mL/min (>60); GLUCOSE FASTING 161 mg/dL (70-110); MAGNESIUM 1.7 mg/dL (1.6-3.0); PHOSPHOROUS 2.3 mg/dL (2.5-4.6); POTASSIUM 3.4 mmol/L (3.5-5.1); PROTEIN TOTAL SERUM 4.9 g/dL (6.0-8.3); SODIUM 130 mmol/L (135-145)
[2016-10-10 11:06] LABS: ALBUMIN SERUM 2.4 g/dL (3.5-5.0); ALKALINE PHOSPHATASE 91 U/L (32-92); ALT (SGPT) 15 U/L (10-40); AST (SGOT) 39 U/L (10-42); BILIRUBIN,TOTAL 4.2 mg/dL (0.2-2.0); BLOOD UREA NITROGEN 28 mg/dL (9-23); BUN/CREATININE RATIO 23.33; CALCIUM SERUM 7.1 mg/dL (8.4-10.2); CARBON DIOXIDE 27 mmol/L (22-31); CHLORIDE 97 mmol/L (100-111); CREATININE SERUM 1.2 mg/dL (0.6-1.4); GLOM FILT RATE Estimated ABOVE60 mL/min (>60); GLUCOSE FASTING 175 mg/dL (70-110); POTASSIUM 3.7 mmol/L (3.5-5.1); PROTEIN TOTAL SERUM 4.7 g/dL (6.0-8.3); SODIUM 128 mmol/L (135-145)
[2016-10-11 04:04] LABS: ARTERIAL BLD GAS O2 SATURATION 97.3 % (90.0-100.0); ARTERIAL BLOOD GAS CARBOXY HB 0.3 %sat (0.0-9.0); ARTERIAL BLOOD GAS HCO3 28.8 mmol/L; ARTERIAL BLOOD GAS PCO2 44.2 mmHg (35.0-45.0); ARTERIAL BLOOD GAS pH 7.422 (7.350-7.450)
[2016-10-11 04:09] LABS: ARTERIAL BLOOD GAS ART SITE RIGHT BRACHIAL; ARTERIAL BLOOD GAS DELIVERY VENT; ARTERIAL BLOOD GAS VENT MODE AC; ARTERIAL DRAW? YES
[2016-10-11 05:38] LABS: BASOPHIL% 0.4 % (0-2.5); EOSINOPHIL# 0.2 X10e3 (0-0.7); EOSINOPHIL% 2.6 % (0.0-7.0); HEMATOCRIT 35.2 % (38.0-50.0); HEMOGLOBIN 11.6 gm/dL (13.0-16.0); LYMPHOCYTE# 0.7 X10e3 (1.0-3.5); LYMPHOCYTE% 8.3 % (17.0-45.0); MEAN CELL VOLUME 82.3 FL (83-96); MEAN CORPUSCULAR HGB CONC 32.9 g/dL (30-36); MONOCYTE# 0.8 X10e3 (0-1.0); MONOCYTE% 9.3 % (3.0-12.0); NEUTROPHIL% 79.4 % (40-75); RED BLOOD COUNT 4.28 X10e (3.90-5.60); RED CELL DISTRIBUTION WIDTH 16.3 % (11.0-15.5); WHITE BLOOD COUNT 8.8 X10e3 (4.0-10.5)
[2016-10-11 05:58] LABS: DIFF IND YES; PLATELET COUNT 90 X10e3 (140-420)
[2016-10-11 05:59] LABS: ANISOCYTOSIS SL; MICROCYTOSIS SL; NUCLEATED RED BLOOD CELL 2 /100 (0); PLATELET ESTIMATE DECREASED (NORMAL)
[2016-10-11 06:00] LABS: HYPOCHROMIA MOD
[2016-10-11 06:35] LABS: FERRITIN 235 ng/mL (24-336)
[2016-10-11 07:22] LABS: GLUCOSE FASTING 160 mg/dL (70-110)
[2016-10-11 07:23] LABS: ALBUMIN SERUM 2.2 g/dL (3.5-5.0); ALT (SGPT) 17 U/L (10-40); AST (SGOT) 46 U/L (10-42); BILIRUBIN,TOTAL 3.9 mg/dL (0.2-2.0); BLOOD UREA NITROGEN 20 mg/dL (9-23); CALCIUM SERUM 7.4 mg/dL (8.4-10.2); CARBON DIOXIDE 28 mmol/L (22-31); CHLORIDE 98 mmol/L (100-111); CREATININE SERUM 0.8 mg/dL (0.6-1.4); GLOM FILT RATE Estimated ABOVE60 mL/min (>60); MAGNESIUM 1.7 mg/dL (1.6-3.0); PHOSPHOROUS 1.8 mg/dL (2.5-4.6); POTASSIUM 3.7 mmol/L (3.5-5.1); PROTEIN TOTAL SERUM 4.6 g/dL (6.0-8.3); SODIUM 134 mmol/L (135-145)
[2016-10-11 07:24] LABS: ALKALINE PHOSPHATASE 145 U/L (32-92); IRON SERUM 57 ug/dL (45-182); LACTIC ACID DEHYDROGENASE 213 U/L (91-180); TRANSFERRIN <70 mg/dL (180-329)
[2016-10-12 04:05] LABS: ARTERIAL BLD GAS O2 SATURATION 97.3 % (90.0-100.0); ARTERIAL BLOOD GAS CARBOXY HB 0.2 %sat (0.0-9.0); ARTERIAL BLOOD GAS HCO3 25.4 mmol/L; ARTERIAL BLOOD GAS MET HB 0.8 %sat (0.0-2.0); ARTERIAL BLOOD GAS PCO2 43.3 mmHg (35.0-45.0); ARTERIAL BLOOD GAS pH 7.376 (7.350-7.450)
[2016-10-12 04:11] LABS: ARTERIAL BLOOD GAS ART SITE RIGHT BRACHIAL; ARTERIAL BLOOD GAS DELIVERY VENT; ARTERIAL BLOOD GAS VENT MODE AC; ARTERIAL DRAW? YES
[2016-10-12 04:26] LABS: BASOPHIL# 0.1 X10e3 (0-0.3); BASOPHIL% 1.1 % (0-2.5); EOSINOPHIL# 0.3 X10e3 (0-0.7); EOSINOPHIL% 3.2 % (0.0-7.0); HEMATOCRIT 38.2 % (38.0-50.0); HEMOGLOBIN 12.3 gm/dL (13.0-16.0); LYMPHOCYTE# 1.3 X10e3 (1.0-3.5); LYMPHOCYTE% 12.6 % (17.0-45.0); MEAN CELL VOLUME 84.4 FL (83-96); MEAN CORPUSCULAR HEMOGLOBIN 27.1 PG (28-34); MEAN CORPUSCULAR HGB CONC 32.1 g/dL (30-36); MEAN PLATELET VOLUME 8.4 FL (6.5-11.5); MONOCYTE# 1.1 X10e3 (0-1.0); MONOCYTE% 10.7 % (3.0-12.0); NEUTROPHIL# 7.5 X10e3 (1.5-7.1); NEUTROPHIL% 72.4 % (40-75); PLATELET COUNT 82 X10e3 (140-420); RED BLOOD COUNT 4.53 X10e (3.90-5.60); RED CELL DISTRIBUTION WIDTH 16.8 % (11.0-15.5); WHITE BLOOD COUNT 10.3 X10e3 (4.0-10.5)
[2016-10-12 04:27] LABS: DIFF IND NO
[2016-10-12 04:39] LABS: INR 2.6; PARTIAL THROMBOPLASTIN TIME 57.6 SECONDS (23.5-31.3)
[2016-10-12 04:42] LABS: PROTHROMBIN TIME (PATIENT) 28.8 SECONDS (9.6-11.5)
[2016-10-12 04:44] LABS: ALBUMIN SERUM 2.2 g/dL (3.5-5.0); BILIRUBIN,TOTAL 3.8 mg/dL (0.2-2.0); BUN/CREATININE RATIO 19.33; CALCIUM SERUM 7.6 mg/dL (8.4-10.2); CREATININE SERUM 1.5 mg/dL (0.6-1.4); GLOM FILT RATE Estimated 52.2 mL/min (>60); PHOSPHOROUS 3.2 mg/dL (2.5-4.6); PROTEIN TOTAL SERUM 5.4 g/dL (6.0-8.3)
[2016-10-12 12:40] LABS: INR 2.3; PARTIAL THROMBOPLASTIN TIME 56.3 SECONDS (23.5-31.3); PROTHROMBIN TIME (PATIENT) 24.7 SECONDS (9.6-11.5)
[2016-10-12 13:57] LABS: INR 2.4; PARTIAL THROMBOPLASTIN TIME 57.6 SECONDS (23.5-31.3); PROTHROMBIN TIME (PATIENT) 25.8 SECONDS (9.6-11.5)
[2016-10-13 03:55] LABS: BASOPHIL# 0.1 X10e3 (0-0.3); BASOPHIL% 0.8 % (0-2.5); EOSINOPHIL# 0.3 X10e3 (0-0.7); EOSINOPHIL% 2.5 % (0.0-7.0); HEMATOCRIT 38.7 % (38.0-50.0); HEMOGLOBIN 12.2 gm/dL (13.0-16.0); LYMPHOCYTE# 1.3 X10e3 (1.0-3.5); LYMPHOCYTE% 10.2 % (17.0-45.0); MEAN CELL VOLUME 84.3 FL (83-96); MEAN CORPUSCULAR HEMOGLOBIN 26.5 PG (28-34); MEAN CORPUSCULAR HGB CONC 31.5 g/dL (30-36); MEAN PLATELET VOLUME 8.4 FL (6.5-11.5); MONOCYTE# 1.3 X10e3 (0-1.0); MONOCYTE% 10.6 % (3.0-12.0); NEUTROPHIL# 9.3 X10e3 (1.5-7.1); NEUTROPHIL% 75.9 % (40-75); PLATELET COUNT 58 X10e3 (140-420); PROTHROMBIN TIME (PATIENT) 21.9 SECONDS (9.6-11.5); RED BLOOD COUNT 4.59 X10e (3.90-5.60); RED CELL DISTRIBUTION WIDTH 16.8 % (11.0-15.5); WHITE BLOOD COUNT 12.3 X10e3 (4.0-10.5)
[2016-10-13 03:56] LABS: DIFF IND NO
[2016-10-13 04:07] LABS: ALBUMIN SERUM 2.2 g/dL (3.5-5.0); BILIRUBIN,TOTAL 4.2 mg/dL (0.2-2.0); BUN/CREATININE RATIO 18.63; CREATININE SERUM 2.2 mg/dL (0.6-1.4); GLOM FILT RATE Estimated 33.6 mL/min (>60); POTASSIUM 4.4 mmol/L (3.5-5.1); PROTEIN TOTAL SERUM 5.7 g/dL (6.0-8.3)
[2016-10-13 09:41] LABS: ARTERIAL BLD GAS O2 SATURATION 66.2 % (90.0-100.0); ARTERIAL BLOOD GAS CARBOXY HB 0.7 %sat (0.0-9.0); ARTERIAL BLOOD GAS HCO3 25.7 mmol/L; ARTERIAL BLOOD GAS PCO2 52.9 mmHg (35.0-45.0); ARTERIAL BLOOD GAS pH 7.294 (7.350-7.450)
[2016-10-13 12:54] LABS: INR 1.8; PROTHROMBIN TIME (PATIENT) 19.9 SECONDS (9.6-11.5)
[2016-10-13 13:20] LABS: HA AB IGM (HEPPAN) Nonreactive (Nonreactive); HB CORE AB IGM (HEPPAN) Nonreactive (Nonreactive); HB S AG (HEPPAN) Nonreactive (Nonreactive); HEP C AB (HEPPAN) Nonreactive (Nonreactive); HEP C AB SIGNAL TO CUTOFF 0.03 ratio (<1.00); HEPATITIS B SURFACE ANTIBODY 17 mIU/mL (>=10)
[2016-10-13 16:59] LABS: ARTERIAL BLD GAS O2 SATURATION 97.1 % (90.0-100.0); ARTERIAL BLOOD GAS ART SITE ARTERIAL LINE; ARTERIAL BLOOD GAS CARBOXY HB 0.5 %sat (0.0-9.0); ARTERIAL BLOOD GAS DELIVERY VENT; ARTERIAL BLOOD GAS HCO3 23.8 mmol/L; ARTERIAL BLOOD GAS MET HB 1.5 %sat (0.0-2.0); ARTERIAL BLOOD GAS PCO2 47.7 mmHg (35.0-45.0); ARTERIAL BLOOD GAS VENT MODE AC; ARTERIAL BLOOD GAS pH 7.308 (7.350-7.450); ARTERIAL DRAW? YES
[2016-10-14 05:56] LABS: ARTERIAL BLOOD GAS pH 7.316 (7.350-7.450)
[2016-10-14 05:57] LABS: ARTERIAL BLD GAS O2 SATURATION 97.8 % (90.0-100.0); ARTERIAL BLOOD GAS ART SITE ARTERIAL LINE; ARTERIAL BLOOD GAS CARBOXY HB 0.3 %sat (0.0-9.0); ARTERIAL BLOOD GAS HCO3 23.7 mmol/L; ARTERIAL BLOOD GAS PCO2 46.4 mmHg (35.0-45.0); ARTERIAL BLOOD GAS PO2 99.5 mmHg (80.0-100); ARTERIAL DRAW? YES
[2016-10-14 05:58] LABS: ARTERIAL BLOOD GAS DELIVERY VENT; ARTERIAL BLOOD GAS VENT MODE AC
[2016-10-14 06:16] LABS: BASOPHIL# 0.1 X10e3 (0-0.3); BASOPHIL% 1.1 % (0-2.5); EOSINOPHIL# 0.3 X10e3 (0-0.7); EOSINOPHIL% 4.1 % (0.0-7.0); HEMATOCRIT 30.9 % (38.0-50.0); LYMPHOCYTE# 0.5 X10e3 (1.0-3.5); LYMPHOCYTE% 8.4 % (17.0-45.0); MEAN CELL VOLUME 84.6 FL (83-96); MEAN CORPUSCULAR HEMOGLOBIN 26.8 PG (28-34); MEAN CORPUSCULAR HGB CONC 31.7 g/dL (30-36); MEAN PLATELET VOLUME 8.5 FL (6.5-11.5); MONOCYTE# 0.7 X10e3 (0-1.0); MONOCYTE% 10.4 % (3.0-12.0); NEUTROPHIL# 4.8 X10e3 (1.5-7.1); RED BLOOD COUNT 3.65 X10e (3.90-5.60); RED CELL DISTRIBUTION WIDTH 16.5 % (11.0-15.5); WHITE BLOOD COUNT 6.3 X10e3 (4.0-10.5)
[2016-10-14 06:18] LABS: DIFF IND YES; HEMOGLOBIN 9.8 gm/dL (13.0-16.0)
[2016-10-14 06:34] LABS: INR 1.5; PARTIAL THROMBOPLASTIN TIME 41.8 SECONDS (23.5-31.3); PROTHROMBIN TIME (PATIENT) 16.2 SECONDS (9.6-11.5)
[2016-10-14 06:46] LABS: ANISOCYTOSIS SL; HYPOCHROMIA MOD; NUCLEATED RED BLOOD CELL 2 /100 (0); PLATELET ESTIMATE DECREASED (NORMAL); POLYCHROMASIA SL
[2016-10-14 06:47] LABS: MICROCYTOSIS SL
[2016-10-14 07:00] LABS: PLATELET COUNT 35 X10e3 (140-420)
[2016-10-14 07:16] LABS: PROCALCITONIN 3.9 NG/ML
[2016-10-14 07:53] LABS: ALBUMIN SERUM 3.1 g/dL (3.5-5.0); BILIRUBIN,TOTAL 3.7 mg/dL (0.2-2.0); BUN/CREATININE RATIO 20.66; CALCIUM SERUM 8.2 mg/dL (8.4-10.2); CREATININE SERUM 1.5 mg/dL (0.6-1.4); GLOM FILT RATE Estimated 52.2 mL/min (>60); POTASSIUM 3.7 mmol/L (3.5-5.1); PROTEIN TOTAL SERUM 5.9 g/dL (6.0-8.3)
[2016-10-14 09:44] LABS: ARTERIAL BLOOD GAS CARBOXY HB 0.7 %sat (0.0-9.0); ARTERIAL BLOOD GAS HCO3 24.6 mmol/L; ARTERIAL BLOOD GAS PCO2 48.9 mmHg (35.0-45.0); ARTERIAL BLOOD GAS pH 7.311 (7.350-7.450)
[2016-10-14 09:45] LABS: ARTERIAL BLOOD GAS PO2 40.3 mmHg (80.0-100); ARTERIAL DRAW? NO
[2016-10-14 11:39] LABS: ARTERIAL BLD GAS O2 SATURATION 96.3 % (90.0-100.0); ARTERIAL BLOOD GAS CARBOXY HB 0.3 %sat (0.0-9.0); ARTERIAL BLOOD GAS HCO3 23.7 mmol/L; ARTERIAL BLOOD GAS PCO2 47.2 mmHg (35.0-45.0); ARTERIAL BLOOD GAS PO2 98.8 mmHg (80.0-100); ARTERIAL BLOOD GAS pH 7.309 (7.350-7.450)
[2016-10-14 11:40] LABS: ARTERIAL BLOOD GAS ART SITE ARTERIAL LINE; ARTERIAL BLOOD GAS DELIVERY VENT; ARTERIAL BLOOD GAS VENT MODE CPAP; ARTERIAL DRAW? YES
[2016-10-14 12:24] LABS: HEMOGLOBIN 9.6 gm/dL (13.0-16.0); MEAN CELL VOLUME 84.5 FL (83-96); MEAN PLATELET VOLUME 7.3 FL (6.5-11.5); RED BLOOD COUNT 3.55 X10e (3.90-5.60); WHITE BLOOD COUNT 6.4 X10e3 (4.0-10.5)
[2016-10-14 14:11] LABS: ARTERIAL BLD GAS O2 SATURATION 97.3 % (90.0-100.0); ARTERIAL BLOOD GAS CARBOXY HB 0.2 %sat (0.0-9.0); ARTERIAL BLOOD GAS HCO3 23.6 mmol/L; ARTERIAL BLOOD GAS PCO2 42.5 mmHg (35.0-45.0); ARTERIAL BLOOD GAS pH 7.354 (7.350-7.450)
[2016-10-14 14:12] LABS: ARTERIAL BLOOD GAS ART SITE ARTERIAL LINE; ARTERIAL BLOOD GAS DELIVERY VENT; ARTERIAL BLOOD GAS VENT MODE AC; ARTERIAL DRAW? YES
[2016-10-14 14:53] LABS: BUN/CREATININE RATIO 23.12; CALCIUM SERUM 8.1 mg/dL (8.4-10.2); CREATININE SERUM 1.6 mg/dL (0.6-1.4); GLOM FILT RATE Estimated 48.5 mL/min (>60); POTASSIUM 3.9 mmol/L (3.5-5.1)
[2016-10-14 16:28] LABS: HEPARIN INDUCED PLT AB Negative (Negative); UFH HIGH DOSE 100 81 (()); UFH LOW DOSE 0.1 80 (()); UFH LOW DOSE 0.5 81 (())
[2016-10-14 20:01] LABS: ARTERIAL BLD GAS O2 SATURATION 97.1 % (90.0-100.0); ARTERIAL BLOOD GAS CARBOXY HB 0.4 %sat (0.0-9.0); ARTERIAL BLOOD GAS MET HB 1.4 %sat (0.0-2.0); ARTERIAL BLOOD GAS PCO2 39.5 mmHg (35.0-45.0); ARTERIAL BLOOD GAS pH 7.374 (7.350-7.450)
[2016-10-14 20:02] LABS: ARTERIAL BLOOD GAS ALLEN TEST ABNORMAL; ARTERIAL BLOOD GAS ART SITE ARTERIAL LINE; ARTERIAL BLOOD GAS VENT MODE AC
[2016-10-14 20:47] LABS: BUN/CREATININE RATIO 23.12; CALCIUM SERUM 7.9 mg/dL (8.4-10.2); CREATININE SERUM 1.6 mg/dL (0.6-1.4); GLOM FILT RATE Estimated 48.5 mL/min (>60); POTASSIUM 3.7 mmol/L (3.5-5.1)
[2016-10-15 04:35] LABS: BASOPHIL# 0.1 X10e3 (0-0.3); BASOPHIL% 1.1 % (0-2.5); EOSINOPHIL# 0.3 X10e3 (0-0.7); EOSINOPHIL% 4.3 % (0.0-7.0); HEMATOCRIT 32.5 % (38.0-50.0); HEMOGLOBIN 10.4 gm/dL (13.0-16.0); LYMPHOCYTE# 1.1 X10e3 (1.0-3.5); LYMPHOCYTE% 16.2 % (17.0-45.0); MEAN CORPUSCULAR HEMOGLOBIN 26.8 PG (28-34); MEAN CORPUSCULAR HGB CONC 31.9 g/dL (30-36); MEAN PLATELET VOLUME 9.4 FL (6.5-11.5); MONOCYTE# 1.1 X10e3 (0-1.0); MONOCYTE% 17.3 % (3.0-12.0); NEUTROPHIL% 61.1 % (40-75); PLATELET COUNT 55 X10e3 (140-420); RED BLOOD COUNT 3.87 X10e (3.90-5.60); RED CELL DISTRIBUTION WIDTH 16.9 % (11.0-15.5); WHITE BLOOD COUNT 6.6 X10e3 (4.0-10.5)
[2016-10-15 04:37] LABS: DIFF IND YES
[2016-10-15 04:46] LABS: ANISOCYTOSIS SL; HYPOCHROMIA SL; MICROCYTOSIS SL; PLATELET ESTIMATE DECREASED (NORMAL); SMUDGE CELLS 13 /100
[2016-10-15 04:49] LABS: ALBUMIN SERUM 2.8 g/dL (3.5-5.0); BILIRUBIN,TOTAL 3.8 mg/dL (0.2-2.0); BUN/CREATININE RATIO 27.05; CALCIUM SERUM 7.9 mg/dL (8.4-10.2); CREATININE SERUM 1.7 mg/dL (0.6-1.4); GLOM FILT RATE Estimated 45.2 mL/min (>60); MAGNESIUM 2.3 mg/dL (1.6-3.0); POTASSIUM 3.8 mmol/L (3.5-5.1); PROTEIN TOTAL SERUM 6.1 g/dL (6.0-8.3)
[2016-10-16 04:47] LABS: BASOPHIL# 0.1 X10e3 (0-0.3); BASOPHIL% 1.5 % (0-2.5); EOSINOPHIL# 0.2 X10e3 (0-0.7); EOSINOPHIL% 3.1 % (0.0-7.0); HEMATOCRIT 30.4 % (38.0-50.0); HEMOGLOBIN 9.8 gm/dL (13.0-16.0); LYMPHOCYTE# 1.3 X10e3 (1.0-3.5); LYMPHOCYTE% 20.6 % (17.0-45.0); MEAN CELL VOLUME 84.4 FL (83-96); MEAN CORPUSCULAR HEMOGLOBIN 27.1 PG (28-34); MEAN CORPUSCULAR HGB CONC 32.1 g/dL (30-36); MEAN PLATELET VOLUME 10.1 FL (6.5-11.5); MONOCYTE# 1.3 X10e3 (0-1.0); MONOCYTE% 19.8 % (3.0-12.0); NEUTROPHIL# 3.6 X10e3 (1.5-7.1); PLATELET COUNT 57 X10e3 (140-420); RED BLOOD COUNT 3.61 X10e (3.90-5.60); RED CELL DISTRIBUTION WIDTH 16.5 % (11.0-15.5); WHITE BLOOD COUNT 6.5 X10e3 (4.0-10.5)
[2016-10-16 04:48] LABS: DIFF IND NO
[2016-10-16 04:51] LABS: ALBUMIN SERUM 3.1 g/dL (3.5-5.0); BILIRUBIN,TOTAL 3.9 mg/dL (0.2-2.0); BUN/CREATININE RATIO 28.18; CALCIUM SERUM 8.2 mg/dL (8.4-10.2); CREATININE SERUM 2.2 mg/dL (0.6-1.4); GLOM FILT RATE Estimated 33.6 mL/min (>60); MAGNESIUM 2.1 mg/dL (1.6-3.0); PHOSPHOROUS 4.4 mg/dL (2.5-4.6); POTASSIUM 4.1 mmol/L (3.5-5.1); PROTEIN TOTAL SERUM 6.5 g/dL (6.0-8.3)
[2016-10-16 04:57] LABS: ARTERIAL BLOOD GAS CARBOXY HB 0.1 %sat (0.0-9.0); ARTERIAL BLOOD GAS HCO3 20.2 mmol/L; ARTERIAL BLOOD GAS MET HB 0.8 %sat (0.0-2.0); ARTERIAL BLOOD GAS PCO2 40.7 mmHg (35.0-45.0); ARTERIAL BLOOD GAS pH 7.305 (7.350-7.450)
[2016-10-16 05:20] LABS: ARTERIAL BLOOD GAS ART SITE ARTERIAL LINE; ARTERIAL BLOOD GAS VENT MODE AC
[2016-10-17 04:01] LABS: ARTERIAL BLD GAS O2 SATURATION 97.5 % (90.0-100.0); ARTERIAL BLOOD GAS CARBOXY HB 0.5 %sat (0.0-9.0); ARTERIAL BLOOD GAS HCO3 26.5 mmol/L; ARTERIAL BLOOD GAS MET HB 1.3 %sat (0.0-2.0); ARTERIAL BLOOD GAS PCO2 41.6 mmHg (35.0-45.0); ARTERIAL BLOOD GAS pH 7.412 (7.350-7.450)
[2016-10-17 04:16] LABS: ARTERIAL BLOOD GAS ART SITE ARTERIAL LINE; ARTERIAL BLOOD GAS DELIVERY VENT; ARTERIAL BLOOD GAS VENT MODE AC; ARTERIAL DRAW? YES
[2016-10-17 05:05] LABS: BASOPHIL# 0.1 X10e3 (0-0.3); BASOPHIL% 1.3 % (0-2.5); EOSINOPHIL# 0.3 X10e3 (0-0.7); EOSINOPHIL% 4.4 % (0.0-7.0); HEMATOCRIT 27.7 % (38.0-50.0); HEMOGLOBIN 8.9 gm/dL (13.0-16.0); LYMPHOCYTE# 1.4 X10e3 (1.0-3.5); LYMPHOCYTE% 22.6 % (17.0-45.0); MEAN CELL VOLUME 83.5 FL (83-96); MEAN CORPUSCULAR HEMOGLOBIN 26.7 PG (28-34); MEAN CORPUSCULAR HGB CONC 31.9 g/dL (30-36); MEAN PLATELET VOLUME 9.4 FL (6.5-11.5); MONOCYTE# 1.4 X10e3 (0-1.0); MONOCYTE% 23.7 % (3.0-12.0); NEUTROPHIL# 2.9 X10e3 (1.5-7.1); RED BLOOD COUNT 3.32 X10e (3.90-5.60); RED CELL DISTRIBUTION WIDTH 16.3 % (11.0-15.5)
[2016-10-17 05:09] LABS: PLATELET COUNT 50 X10e3 (140-420)
[2016-10-17 05:10] LABS: DIFF IND NO
[2016-10-17 05:40] LABS: ALBUMIN SERUM 2.9 g/dL (3.5-5.0); BILIRUBIN,TOTAL 2.9 mg/dL (0.2-2.0); BUN/CREATININE RATIO 22.35; CREATININE SERUM 1.7 mg/dL (0.6-1.4); GLOM FILT RATE Estimated 45.2 mL/min (>60); MAGNESIUM 1.8 mg/dL (1.6-3.0); PHOSPHOROUS 1.9 mg/dL (2.5-4.6); POTASSIUM 4.1 mmol/L (3.5-5.1); PROTEIN TOTAL SERUM 5.6 g/dL (6.0-8.3)
[2016-10-18 03:56] LABS: ARTERIAL BLD GAS O2 SATURATION 96.6 % (90.0-100.0); ARTERIAL BLOOD GAS CARBOXY HB 0.5 %sat (0.0-9.0); ARTERIAL BLOOD GAS HCO3 22.3 mmol/L; ARTERIAL BLOOD GAS MET HB 1.4 %sat (0.0-2.0); ARTERIAL BLOOD GAS PCO2 40.8 mmHg (35.0-45.0); ARTERIAL BLOOD GAS pH 7.347 (7.350-7.450)
[2016-10-18 04:00] LABS: ARTERIAL DRAW? YES
[2016-10-18 04:01] LABS: ARTERIAL BLOOD GAS ART SITE ARTERIAL LINE; ARTERIAL BLOOD GAS DELIVERY VENT; ARTERIAL BLOOD GAS VENT MODE A/C
[2016-10-18 04:19] LABS: BASOPHIL% 0.4 % (0-2.5); EOSINOPHIL# 0.3 X10e3 (0-0.7); HEMATOCRIT 29.5 % (38.0-50.0); HEMOGLOBIN 9.2 gm/dL (13.0-16.0); LYMPHOCYTE# 1.4 X10e3 (1.0-3.5); LYMPHOCYTE% 11.8 % (17.0-45.0); MEAN CELL VOLUME 84.5 FL (83-96); MEAN CORPUSCULAR HEMOGLOBIN 26.3 PG (28-34); MEAN CORPUSCULAR HGB CONC 31.2 g/dL (30-36); MEAN PLATELET VOLUME 9.9 FL (6.5-11.5); MONOCYTE# 0.9 X10e3 (0-1.0); MONOCYTE% 7.6 % (3.0-12.0); NEUTROPHIL# 8.9 X10e3 (1.5-7.1); NEUTROPHIL% 77.2 % (40-75); RED BLOOD COUNT 3.49 X10e (3.90-5.60); RED CELL DISTRIBUTION WIDTH 16.3 % (11.0-15.5)
[2016-10-18 04:23] LABS: DIFF IND NO; PLATELET COUNT 112 X10e3 (140-420); WHITE BLOOD COUNT 11.5 X10e3 (4.0-10.5)
[2016-10-18 04:36] LABS: INR 1.5; PARTIAL THROMBOPLASTIN TIME 40.4 SECONDS (23.5-31.3); PROTHROMBIN TIME (PATIENT) 15.7 SECONDS (9.6-11.5)
[2016-10-18 04:44] LABS: ALBUMIN SERUM 2.5 g/dL (3.5-5.0); BILIRUBIN,TOTAL 2.3 mg/dL (0.2-2.0); BUN/CREATININE RATIO 23.04; CREATININE SERUM 2.3 mg/dL (0.6-1.4); DIGOXIN (LANOXIN) 0.4 ng/ml (1.0-2.0); GLOM FILT RATE Estimated 31.9 mL/min (>60); MAGNESIUM 2.1 mg/dL (1.6-3.0); PHOSPHOROUS 3.3 mg/dL (2.5-4.6); POTASSIUM 4.1 mmol/L (3.5-5.1); PROTEIN TOTAL SERUM 5.4 g/dL (6.0-8.3)
[2016-10-18 05:31] LABS: ARTERIAL DRAW? NO
== END 2016-10-19 02:40 | disposition expired | DRG 3 ==
LOC: CED 12:40 → CEDOF 18:00 → CICCU2 10-03 11:26
PROVIDERS: Emergency Medicine; Internal Medicine; Internal Medicine Cardiovascular Disease; Internal Medicine Hematology; Internal Medicine Nephrology; Internal Medicine Pulmonary Disease; Physician Assistant Medical; Specialist; Surgery
PROC: 05HN33Z Insertion of Infusion Device into Left Internal Jugular Vein, Percutaneous Approach (ICD-10-PCS; 2016-10-02)
PROC: B544ZZA Ultrasonography of Left Jugular Veins, Guidance (ICD-10-PCS; 2016-10-02)
PROC: 03HC33Z Insertion of Infusion Device into Left Radial Artery, Percutaneous Approach (ICD-10-PCS; 2016-10-04)
PROC: 5A1955Z Respiratory Ventilation, Greater than 96 Consecutive Hours (ICD-10-PCS; 2016-10-05)
PROC: 0DTJ0ZZ Resection of Appendix, Open Approach (ICD-10-PCS; 2016-10-05)
PROC: 3E1M38X Irrigation of Peritoneal Cavity using Irrigating Substance, Percutaneous Approach, Diagnostic (ICD-10-PCS; 2016-10-05)
PROC: B24BYZZ Ultrasonography of Heart with Aorta using Other Contrast (ICD-10-PCS; 2016-10-05)
PROC: 0B9M8ZZ Drainage of Bilateral Lungs, Via Natural or Artificial Opening Endoscopic (ICD-10-PCS; 2016-10-09)
PROC: 05HM33Z Insertion of Infusion Device into Right Internal Jugular Vein, Percutaneous Approach (ICD-10-PCS; 2016-10-09)
PROC: 0B968ZX Drainage of Right Lower Lobe Bronchus, Via Natural or Artificial Opening Endoscopic, Diagnostic (ICD-10-PCS; 2016-10-09)
PROC: 30233L1 Transfusion of Nonautologous Fresh Plasma into Peripheral Vein, Percutaneous Approach (ICD-10-PCS; 2016-10-13)
PROC: 30233K1 Transfusion of Nonautologous Frozen Plasma into Peripheral Vein, Percutaneous Approach (ICD-10-PCS; 2016-10-13)
PROC: 0B110F4 Bypass Trachea to Cutaneous with Tracheostomy Device, Open Approach (ICD-10-PCS; principal; 2016-10-13 14:00)
PROC: 6A551Z2 Pheresis of Platelets, Multiple (ICD-10-PCS; 2016-10-14)
PROC: 5A1D60Z (ICD-10-PCS; 2016-10-14)
DX: A41.9 Sepsis, unspecified organism (principal); R65.21 Severe sepsis with septic shock; I21.4 Non-ST elevation (NSTEMI) myocardial infarction; N17.0 Acute kidney failure with tubular necrosis; J95.822 Acute and chronic postprocedural respiratory failure; N18.6 End stage renal disease; I47.2 Ventricular tachycardia; I50.21 Acute systolic (congestive) heart failure; D69.6 Thrombocytopenia, unspecified; J18.9 Pneumonia, unspecified organism; A04.7 Enterocolitis due to Clostridium difficile; Z68.43 Body mass index [BMI] 50.0-59.9, adult; E87.1 Hypo-osmolality and hyponatremia; I13.0 Hypertensive heart and chronic kidney disease with heart failure and stage 1 through stage 4 chronic kidney disease, or unspecified chronic kidney disease; E87.2 Acidosis; K56.7 Ileus, unspecified; E46 Unspecified protein-calorie malnutrition; E11.22 Type 2 diabetes mellitus with diabetic chronic kidney disease; Z79.84 Long term (current) use of oral hypoglycemic drugs; I48.91 Unspecified atrial fibrillation; Z79.01 Long term (current) use of anticoagulants; E66.01 Morbid (severe) obesity due to excess calories; G47.33 Obstructive sleep apnea (adult) (pediatric); E78.5 Hyperlipidemia, unspecified; G89.29 Other chronic pain; M54.9 Dorsalgia, unspecified; Z87.891 Personal history of nicotine dependence; I48.2 Chronic atrial fibrillation; M06.9 Rheumatoid arthritis, unspecified; R07.9 Chest pain, unspecified; I20.9 Angina pectoris, unspecified; I45.10 Unspecified right bundle-branch block; E87.6 Hypokalemia; E83.42 Hypomagnesemia; D64.9 Anemia, unspecified
CPT/HCPCS: 36600; 71010; 71250; 74176; 80048; 80053; 80061; 80074; 80076; 80162; 81003; 82140; 82150; 82308; 82550; 82570; 82607; 82652; 82728; 82803; 82947; 83540; 83550; 83605; 83615; 83690; 83735; 83880; 83930; 83935; 84100; 84134; 84300; 84478; 84484; 84550; 85025; 85027; 85384; 85610; 85730; 86022; 86706; 86850; 86900; 86901; 86923; 87040; 87045; 87070; 87086; 87102; 87106; 87116; 87177; 87205; 87206; 87209; 87252; 87254; 87278; 87427; 87493; 87899; 88108; 88304; 88305; 88312; 89051; 90945; 93005; 93306; 94002; 94003; 94660; 94760; 94761; 96360; 96361; 97162; 97530; 99291; C1750; C1769; G8978-GP; G8979-GP; J0171; J0282; J0330; J0456; J0610; J0883; J0884; J1160; J1250; J1450; J1644; J1650; J1815; J1956; J2020; J2060; J2185; J2248; J2250; J2270; J2370; J2405; J2543; J2720; J2765; J2997; J3010; J3243; J3370; J3475; J3490; J7060; P9035; P9045; P9047; P9059